=== PATIENT | male | born 1950 | race Caucasian/White ===

== ENCOUNTER 2016-06-17 14:51 | Emergency (ER) | payer OTHER ==
[~2016-06-17] VITALS: Ht 182.9 cm; Wt 149.7 kg
[~2016-06-17 14:51] MED LIST: CIPRO 500MG TA500 MG PO; ECOTRIN81 MG PO; INDOMETHACIN50 MG PO; MEDROL DOSEPAK1 PAC PO; PERCOCET 325 MG1 TA2 PO
--- NOTE | 2016-06-17 15:23 | ED AMS/SEIZURE/WEAK/DIZZY ---
History of Present Illness General Chief Complaint: General Adult Stated Complaint: BIBA, GENERAL WEAKNESS Source: patient, EMS Exam Limitations: no limitations Vital Signs & Intake/Output Vital Signs & Intake/Output Vital Signs Date Time Temp Pulse Resp B/P B/P Pulse O2 O2 Flow FiO2 Mean Ox Delivery Rate 06/17 1837 98.1 66 18 130/72 98 Room Air 06/17 1635 95 06/17 1628 97.1 64 18 128/84 98 Room Air 06/17 1500 97 Room Air 06/17 1459 96.5 66 18 141/67 97 Room Air Allergies Coded Allergies: NO KNOWN ALLERGIES (11/24/14) Reconcile Medications Adalimumab (Humira Pen) 40 MG/0.8 ML PEN.IJ.KIT 1 SYR SC Q2W SKIN (Reported) Aspirin (Ecotrin) 81 MG ECT 1 TAB PO DAILY BLOOD THINNER (Reported) Bupropion HCl (Forfivo XL) 450 MG TAB.ER.24H 1 TAB PO DAILY MENTAL HEALTH ( Reported) Metoprolol Succ XL (Toprol XL) (Unknown Strength) TAB (Unknown Dose) PO DAILY HEART (Reported) Simvastatin (Simvastatin*) (Unknown Strength) TABLET (Unknown Dose) PO QPM CHOLESTEROL (Reported) Trazodone HCl (Unknown Strength) TABLET (Unknown Dose) PO QPM SLEEP (Reported ) Triage Note: 65 Y/O MALE LEANNA FROM HOME FOR EVAL OF GENERAL WEAKNESS X 1 WEEK. PT ARRIVES ALERT AND ORIENTED X 4, SPEAKING CLEARLY WITH NO SLURRING OR DEFICITS NOTED. PT STATES HE FEELS "EXHAUSTED .. EVEN TO GET UP FROM A CHAIR, I AM JUST WIPED OUT". PT STATES HE FEELS HE IS SLURRING HIS WORDS AT TIMES. SPEECH CLEAR AT THIS TIME. REPORTS INTERMITTENT BODY ACHES. DENIES N/V/D. DENIES SOB. DENIES C/P. NO FACIAL DROOP NOTED. NO ARM DRIFT NOTED. EQUAL HAND GRASPS. PT ALSO STATES HE FELL MONDAY BECAUSE A CHAIR BROKE. STRUCK BACK OF HEAD, DENIES LOC EKG IN PROGRESS AWAITING EVAL Triage Nurses Notes Reviewed? yes Onset: Gradual Duration: day(s): (5) Timing: recent history Injury Environment: home Severity: mild, moderate No Modifying Factors: none HPI: 65 year old male feeling weak for the last 5 days, worse x 3 days. He states that his whole body hurts. He has trouble walking because he feels wobbly and uses a cane. He also c/o having a hard time getting out of the chair. The patient reports a fall last week from a chair that broke. He bumped the back of his head on a railing but never had a bump. No chest pain. Occasional cough and dyspnea. Past History Travel History Traveled to [place] past 21 day No Medical History Any Pertinent Medical History? see below for history Neurological: NONE EENT: NONE Cardiovascular: AFIB, hypertension Respiratory: COPD Gastrointestinal: GERD Hepatic: NONE Renal: NONE Musculoskeletal: gout, osteoarthritis Psychiatric: anxiety, depression Endocrine: diabetes Blood Disorders: PSORIASIS Surgical History Surgical History: non-contributory Psychosocial History What is your primary language Divehi Tobacco Use: Current Not Daily Family History Hx Contributory? No Review of Systems Review of Systems Constitutional: Reports: weakness. Denies: chills, fever. EENTM: Reports: no symptoms. Respiratory: Denies: cough, short of breath. Cardiovascular: Denies: chest pain, palpitations. GI: Denies: abdominal pain. Genitourinary: Reports: no symptoms. Musculoskeletal: Reports: muscle pain, muscle stiffness. Skin: Reports: no symptoms. Neurological/Psychological: Reports: no symptoms. Hematologic/Endocrine: Denies: bruising, bleeding, polyuria, polydipsia. Immunologic/Allergic: Denies: splenectomy. All Other Systems: Reviewed and Negative Physical Exam Physical Exam General Appearance: well developed/nourished, alert, awake Head: atraumatic, normal appearance Eyes: Bilateral: normal appearance, PERRL, EOMI. Ears, Nose, Throat: normal pharynx, hearing grossly normal Neck: normal inspection, supple, full range of motion Respiratory: chest non-tender, decreased breath sounds, wheezing Cardiovascular: regular rate/rhythm Peripheral Pulses: 2+ radial (R), 2+ radial (L) Gastrointestinal: soft, non-tender Extremities: normal range of motion Neurologic/Psych: no motor/sensory deficits, awake, alert, oriented x 3 Skin: intact, normal color, warm/dry Core Measures ACS in differential dx? No CVA/TIA Diagnosis: No Severe Sepsis Present: No Septic Shock Present: No Progress Differential Diagnosis: anemia, CVA/stroke, dehydration, bronchitis, pneumonia Plan of Care: Orders Procedure Date/time Status RT ED ORDERS 06/17 1612 Active Add-on Test (ER Only) 06/17 1607 Active URINALYSIS 06/17 1543 Active TROPONIN LEVEL 06/17 154 Complete LYME TITRE 06/17 1543 Active COMPREHENSIVE METABOLIC PANEL 06/17 1543 Complete CREATINE PHOSPHOKINASE 06/17 1543 Complete CBC WITHOUT DIFFERENTIAL 06/17 154 Complete EKG 06/17 1458 Active Laboratory Tests 06/17/16 1623: Anion Gap 10, Estimated GFR > 60, BUN/Creatinine Ratio 27.1 H, Glucose 154 H, Calcium 8.5, Total Bilirubin 0.5, AST 54, ALT 76 H, Alkaline Phosphatase 119, Creatine Kinase 34 L, Troponin I 0.02, Total Protein 6.2 L, Albumin 3.2 L, Globulin 3.0, Albumin/Globulin Ratio 1.1, CBC w Diff NO MAN DIFF REQ, RBC 5.03, MCV 81.3, MCH 26.0 L, RDW 16.0 H, MPV 9.3, Gran % 62.4, Lymphocytes % 27.4, Monocytes % 7.6, Eosinophils % 2.3, Basophils % 0.3, Absolute Granulocytes 3.5, Absolute Lymphocytes 1.5, Absolute Monocytes 0.4, Absolute Eosinophils 0.1, Absolute Basophils 0, PUBS MCHC 32.0 L duoneb, iv solumedrol, iv fluids ordered. labs, cxr, ct scan ordered. Patient improved after fluids. Ambulatory without distress. Patient is calling for a ride home. (HEATH PORRAS,SHERIE) Diagnostic Imaging: Viewed by Me: Radiology Read, CT Scan. Discussed w/RAD: Radiology Read, CT Scan. Initial ED EKG: RBBB Comments: PATIENT: SAHRA LUX PRESENT AGE: 65 PATIENT ACCOUNT NO: [id number] : 52 LOCATION: [facility] ORDERING PHYSICIAN: SHERIE JOE MD SERVICE DATE: 06/17/16 EXAM TYPE: CAT - CT HEAD WO IV CONTRAST EXAMINATION: CT HEAD WITHOUT CONTRAST CLINICAL INFORMATION: Fall and head trauma last week. Now with progressive weakness. Evaluate for subdural hematoma. COMPARISON: None. TECHNIQUE: Contiguous axial imaging was performed from the skull base to vertex without intravenous administration of contrast. DLP: 697 mGy-cm FINDINGS: No acute intracranial abnormality. No acute intracranial hemorrhage, mass or mass effect or abnormal extra-axial fluid collections. The density within the dural venous sinuses is within normal limits. The ventricles are normal in size, without hydrocephalus. There are no focal areas of hypoattenuation within a vascular distribution to suggest acute transcortical ischemia. The basilar cisterns are patent. No acute calvarial abnormality is identified. Soft tissues appear unremarkable. The imaged paranasal sinuses and mastoid air cells are well aerated. IMPRESSION: No acute intracranial pathology. DICTATED BY: GREGOR MCCORD MD DATE/TIME DICTATED:06/17/161748 INVESTIGATION LIEUTENANT:BOBBI DATE/TIME TRANSCRIBED:06/17/161748 CONFIDENTIAL, DO NOT COPY WITHOUT APPROPRIATE AUTHORIZATION. <Electronically signed in Other Vendor System> SIGNED BY: GREGOR MCCORD MD 06/17/161756 PATIENT: SAHRA LUX PRESENT AGE: 65 PATIENT ACCOUNT NO: [id number] : 52 LOCATION: [facility]) ORDERING PHYSICIAN: SHERIE JOE MD SERVICE DATE: 06/17/16 EXAM TYPE: RAD - XRY-CHEST XRAY, PA AND LATERAL EXAMINATION: XR CHEST CLINICAL INFORMATION: Cough and weakness. COMPARISON: None. TECHNIQUE: PA and lateral views of the chest were obtained. FINDINGS: The lungs are well-expanded and clear without focal airspace consolidation. No pleural effusions or pneumothoraces are identified. Cardiomediastinal contours are within normal limits. Soft tissues are unremarkable. No acute osseous abnormality is identified. IMPRESSION: No acute pulmonary process. DICTATED BY: GREGOR MCCORD MD DATE/TIME DICTATED:06/17/161608 INVESTIGATION LIEUTENANT:BOBBI DATE/TIME TRANSCRIBED:06/17/161608 CONFIDENTIAL, DO NOT COPY WITHOUT APPROPRIATE AUTHORIZATION. <Electronically signed in Other Vendor System> SIGNED BY: GREGOR MCCORD MD 06/17/16 1618 Departure Departure Time of Disposition: 1855 Disposition: HOME OR SELF CARE Condition: Stable Clinical Impression Primary Impression: Weakness Secondary Impressions: Bronchitis, Medication side effect Referrals: BRYN UREÑA MD (PCP/Family) Additional Instructions: Stop your trazadone as you stated. Follow up with your doctor at the [facility]. Return if worse. Departure Forms: Customer Survey General Discharge Information
[2016-06-17] MEDS ORDERED: FORFIVO XL450 MG PO (15:28)
[2016-06-17] MEDS ORDERED: TRAZODONE HCL50 M1 PO (15:29)
[2016-06-17] MEDS ORDERED: TOPROL XL25 M1 PO (15:30)
[2016-06-17] MEDS ORDERED: SIMVASTATIN10 M1 PO (15:30)
[2016-06-17] MEDS ORDERED: HUMIRA PEN40 MG/0.8 SC (15:31)
--- NOTE | 2016-06-17 16:18 | RADIOLOGY REPORT ---
EXAMINATION: XR CHEST CLINICAL INFORMATION: Cough and weakness. COMPARISON: None. TECHNIQUE: PA and lateral views of the chest were obtained. FINDINGS: The lungs are well-expanded and clear without focal airspace consolidation. No pleural effusions or pneumothoraces are identified. Cardiomediastinal contours are within normal limits. Soft tissues are unremarkable. No acute osseous abnormality is identified. IMPRESSION: No acute pulmonary process.
[2016-06-17 16:31] LABS: ABSOLUTE BASOPHIL COUNT 0 /CUMM (0.0-0.2); ABSOLUTE EOSINOPHIL COUNT 0.1 /CUMM (0.0-0.7); ABSOLUTE GRANULOCYTE CT 3.5 /CUMM (1.4-6.5); ABSOLUTE LYMPH COUNT 1.5 /CUMM (1.2-3.4); ABSOLUTE MONOCYTE COUNT 0.4 /CUMM (0.10-0.60); BASOPHIL % 0.3 % (0.0-2.0); EOSINOPHIL % 2.3 % (0-5); GRANULOCYTE % 62.4 % (42.2-75.2); HEMATOCRIT 40.9 % (42-52); MEAN CORPUSCULAR VOLUME 81.3 FL (80.0-94.0); MEAN PLATELET VOLUME 9.3 FL (7.4-10.4); PLATELET COUNT 81 /CUMM (130-400); RED BLOOD CELL CT 5.03 /CUMM (4.70-6.10); WHITE BLOOD CELL COUNT 5.6 /CUMM (4.8-10.8)
--- NOTE | 2016-06-17 17:57 | CT SCAN REPORT ---
EXAMINATION: CT HEAD WITHOUT CONTRAST CLINICAL INFORMATION: Fall and head trauma last week. Now with progressive weakness. Evaluate for subdural hematoma. COMPARISON: None. TECHNIQUE: Contiguous axial imaging was performed from the skull base to vertex without intravenous administration of contrast. DLP: 697 mGy-cm FINDINGS: No acute intracranial abnormality. No acute intracranial hemorrhage, mass or mass effect or abnormal extra-axial fluid collections. The density within the dural venous sinuses is within normal limits. The ventricles are normal in size, without hydrocephalus. There are no focal areas of hypoattenuation within a vascular distribution to suggest acute transcortical ischemia. The basilar cisterns are patent. No acute calvarial abnormality is identified. Soft tissues appear unremarkable. The imaged paranasal sinuses and mastoid air cells are well aerated. IMPRESSION: No acute intracranial pathology.
[2016-06-17 18:37] VITALS: BP 130/72
== END 2016-06-17 18:59 ==
LOC: ERH 14:51
PROVIDERS: Emergency Medicine
DX: T50.905A Adverse effect of unspecified drugs, medicaments and biological substances, initial encounter (principal); J40 Bronchitis, not specified as acute or chronic; R53.1 Weakness
CPT/HCPCS: 1263; 86618; 93005; 93010; 96361; 96374; J2930

== ENCOUNTER 2017-09-26 08:23 | Emergency (ER) | payer OTHER ==
[~2017-09-26] VITALS: Ht 182.9 cm; Wt 158.8 kg
[~2017-09-26 08:23] MED LIST changes: +ASPIRIN81 M4 PO; +ATORVASTATIN CA40 M1 PO; +CLONAZEPAM1 M2 PO; -ECOTRIN81 MG PO; +ELIQUIS5 M1 PO; +FORFIVO XL450 MG PO; +GLIPIZIDE5 M2 PO; +HUMIRA PEN40 MG/0.8 SC; +METFORMIN HCL1000 M1 PO; +METOPROLOL TART50 M1 PO; +OMEPRAZOLE20 M3 PO; +SIMVASTATIN10 M1 PO; +TOPROL XL25 M1 PO; +TRAMADOL HCL E100 M1 PO; +TRAZODONE HCL50 M1 PO
[2017-09-26 08:26] VITALS: BP 132/83
--- NOTE | 2017-09-26 08:30 | ED NECK/BACK PAIN COMPLAINT ---
History of Present Illness General Chief Complaint: Low Back Pain/Injury Stated Complaint: LBP Source: patient, old records, EMS Exam Limitations: no limitations Vital Signs & Intake/Output Vital Signs & Intake/Output Vital Signs Date Time Temp Pulse Resp B/P B/P Pulse O2 O2 Flow FiO2 Mean Ox Delivery Rate 09/26 0826 97.5 80 20 132/83 96 Room Air Allergies Coded Allergies: trazodone (UNKNOWN 09/26/17) Reconcile Medications Adalimumab (Humira Pen) 40 MG/0.8 ML PEN.IJ.KIT 1 SYR SC Q2W SKIN (Reported) Apixaban (Eliquis) 5 MG TABLET 1 TAB PO BID atrial fibrillation (Reported) Aspirin (Aspirin*) 81 MG TAB.CHEW 1 TAB PO DAILY HEART (Reported) Atorvastatin Calcium 40 MG TABLET 1 TAB PO DAILY heart (Reported) Bupropion HCl (Forfivo XL) 450 MG TAB.ER.24H 1 TAB PO DAILY MENTAL HEALTH ( Reported) Clonazepam 1 MG TABLET 1 TAB PO BIDP PRN ANXIETY (Reported) Glipizide 5 MG TABLET 3 TAB PO BID DIABETES (Reported) Metformin HCl 1,000 MG TABLET 1 TAB PO BID DIABETES (Reported) Metoprolol Tartrate 50 MG TABLET 1 TAB PO BID BP, AFIB (Reported) Omeprazole 20 MG TABLET.DR 1 TAB PO DAILY GERD (Reported) Tramadol HCl (Tramadol HCl ER) 100 MG TBMP.24HR 1 TAB PO DAILY PRN SEVERE PAIN (Reported) Triage Note: PT BIBA TO TRIAGE FOR C/O LOW BACK PAIN X 4 DAYS. WAS SEEN AT WALK IN AND GIVEN MUSCLE RELAXERS AND STEROIDS WITH NO RELIEF. DENIES ANY OBVIOUS INJURY. DENIES LOSS OF B/B. Triage Nurses Notes Reviewed? yes HPI: Patient presents with left lower back pain that has been worsening over the past 4 days. Patient states he occasionally gets back pain. Last day or 2 and then goes away. Patient states that the pain is aching and throbbing in nature. There is no radiation. The pain increased with movement. There is no weakness or numbness. There is no incontinence of bowel or bladder. He states the pain is 10 out of 10. Patient went to a walk in center and they put him on muscle relaxers as well as prednisone but that is not helping the pain at all. Past History Travel History Traveled to [place] past 21 day No Medical History Any Pertinent Medical History? see below for history Neurological: NONE EENT: NONE Cardiovascular: AFIB, hypertension Respiratory: COPD Gastrointestinal: GERD Hepatic: NONE Renal: NONE Musculoskeletal: gout, osteoarthritis Psychiatric: anxiety, depression Endocrine: diabetes Blood Disorders: PSORIASIS Cancer(s): liver cancer [employer] PANELS/Reproductive: genital herpes History of MRSA: Yes History of VRE: No History of CDIFF: No Surgical History Surgical History: PENILE IMPLANTS HERNIA REPAIRS TONSILECTOMY HAMMER TOE REPAIR Psychosocial History Who do you live with Patient/Self Services at Home None What is your primary language Mohawk Tobacco Use: Quit >30 days ago ETOH Use: occasional use Illicit Drug Use: denies illicit drug use Family History Family History, If Any: SISTER FH: heart attack, Onset: 50-60. FATHER, . FH: heart attack, Onset: 60+. Hx Contributory? No Review of Systems Review of Systems Constitutional: Reports: no symptoms. Ears, Nose, Throat, Mouth: Reports: no symptoms. Respiratory: Reports: no symptoms. Cardiovascular: Reports: no symptoms. Musculoskeletal: Reports: see HPI, back pain. Neurological/Psychological: Reports: no symptoms. Physical Exam Physical Exam General Appearance: well developed/nourished, alert, awake, moderate distress Head: atraumatic, normal appearance Eyes: Bilateral: PERRL, EOMI. Ears, Nose, Throat, Mouth: hearing grossly normal, moist mucous membrane Neck: normal inspection, supple, full range of motion, no midline tenderness Respiratory: normal breath sounds, chest non-tender, no respiratory distress, lungs clear Cardiovascular: normal peripheral pulses, irregularly irregular Extremities: non-tender Straight Leg Raising: Right: Negative. Left: Negative. Neurologic/Psych: no motor/sensory deficits, awake, alert, oriented x 3, normal mood/affect Core Measures CVA/TIA Diagnosis: No Progress Differential Diagnosis: herniated disc, myofascial strain, sciatica, T/L spine injury Plan of Care: Orders Procedure Date/time Status XRY-LUMBOSACRAL SPINE AP & LAT 09/26 829 Active Current Medications Sig/Marge Start time Last Medication Dose Stop Time Status Admin Oxycodone/ 1 TAB ONCE ONE 09/26 829 UNVr 09/26 Acetaminophen 09/26 0831 0833 (Percocet) Diagnostic Imaging: Viewed by Me: Radiology Read. Discussed w/RAD: Radiology Read. Radiology Impression: PATIENT: SAHRA LUX PRESENT AGE: 67 PATIENT ACCOUNT NO: [id number] : 52 LOCATION: [facility] ORDERING PHYSICIAN: Brian Stevens MD SERVICE DATE: 09/26/17 EXAM TYPE: RAD - XRY-LUMBOSACRAL SPINE AP & LAT EXAMINATION: XR LUMBOSACRAL SPINE CLINICAL INFORMATION: Pain. Presumptive diagnosis of fracture. COMPARISON: None TECHNIQUE : 3 views of the lumbosacral spine were obtained. FINDINGS: Mild convex left lumbar scoliosis is seen. No acute fracture or dislocation is noted. There is bulky marginal spur formation seen in the lower thoracic and throughout the lumbar spine. Disc space height is relatively preserved at all levels. There is moderate facet arthropathy throughout the lumbar spine, most severe at the lumbosacral junction. Mild degenerative changes are seen at the hip joints, which are partially included. Sacroiliac joints are unremarkable. Pubic symphysis is intact. Large amount of fecal material is seen in the colon. There is a rounded right upper quadrant calcified structure seen, possibly a calcified gallstone. IMPRESSION: 1. Bulky marginal spur formation in the thoracolumbar spine and moderate facet arthropathy throughout the lumbar spine. 2. No acute fracture or malalignment. 3. Mild degenerative changes in both hip joints. 4. Possible small calcified gallstone in the right upper quadrant. DICTATED BY: Syeda Baldwin MD DATE/TIME DICTATED:09/26/17905 WEB SITE DEVELOPER:BOBBI DATE/TIME TRANSCRIBED:09/26/17905 CONFIDENTIAL, DO NOT COPY WITHOUT APPROPRIATE AUTHORIZATION. <Electronically signed in Other Vendor System> SIGNED BY: Syeda Baldwin MD 09/26/17911 Comments: Pain decreased to a 6 out of 10 after the Percocet. Patient was influenza ambulate in the emergency department and feels comfortable: Home. Departure Departure Disposition: HOME OR SELF CARE Condition: Stable Clinical Impression Primary Impression: Low back pain Referrals: Antoinette Alex MD (PCP/Family) Additional Instructions: Continue the muscle relaxers and steroids as previously prescribed. Take Percocet as needed for the pain. Percocet is very constipating and is very sedating so do not drive after taking. Follow up with her primary care physician. Return if symptoms worsen or for any concerns. Departure Forms: Customer Survey General Discharge Information Prescriptions: Current Visit Scripts Oxycodone HCl/Acetaminophen (Percocet 5-325 MG Tablet) 1-2 TAB PO Q6P PRN PAIN #20 TAB
--- NOTE | 2017-09-26 09:12 | RADIOLOGY REPORT ---
EXAMINATION: XR LUMBOSACRAL SPINE CLINICAL INFORMATION: Pain. Presumptive diagnosis of fracture. COMPARISON: None TECHNIQUE: 3 views of the lumbosacral spine were obtained. FINDINGS: Mild convex left lumbar scoliosis is seen. No acute fracture or dislocation is noted. There is bulky marginal spur formation seen in the lower thoracic and throughout the lumbar spine. Disc space height is relatively preserved at all levels. There is moderate facet arthropathy throughout the lumbar spine, most severe at the lumbosacral junction. Mild degenerative changes are seen at the hip joints, which are partially included. Sacroiliac joints are unremarkable. Pubic symphysis is intact. Large amount of fecal material is seen in the colon. There is a rounded right upper quadrant calcified structure seen, possibly a calcified gallstone. IMPRESSION: 1. Bulky marginal spur formation in the thoracolumbar spine and moderate facet arthropathy throughout the lumbar spine. 2. No acute fracture or malalignment. 3. Mild degenerative changes in both hip joints. 4. Possible small calcified gallstone in the right upper quadrant.
[2017-09-26] MEDS ORDERED: PERCOCET 5-3251 EACH PO (09:54)
== END 2017-09-26 10:04 ==
LOC: ERH 08:23
DX: M54.5 Low back pain (principal)
CPT/HCPCS: 72100

== ENCOUNTER 2017-09-30 23:54 | Inpatient (IN) | payer OTHER ==
[~2017-09-30] VITALS: Ht 182.9 cm; Wt 149.2 kg
[~2017-09-30 23:54] MED LIST changes: +PERCOCET 5-3251 EACH PO
--- NOTE | 2017-10-01 01:14 | ED SKIN/ALLERGY COMPLAINT ---
History of Present Illness General Chief Complaint: Neck/Upper Back Pain/Injury Stated Complaint: BACK PAIN Source: patient, old records Exam Limitations: no limitations Vital Signs & Intake/Output Vital Signs & Intake/Output Vital Signs Date Time Temp Pulse Resp B/P B/P Pulse O2 O2 Flow FiO2 Mean Ox Delivery Rate 10/01 0027 102.6 10/01 0024 102.6 121 20 148/75 98 Room Air Allergies Coded Allergies: trazodone (UNKNOWN 09/26/17) Reconcile Medications Adalimumab (Humira Pen) 40 MG/0.8 ML PEN.IJ.KIT 1 SYR SC Q2W SKIN (Reported) Apixaban (Eliquis) 5 MG TABLET 1 TAB PO BID atrial fibrillation (Reported) Aspirin (Aspirin*) 81 MG TAB.CHEW 1 TAB PO DAILY HEART (Reported) Atorvastatin Calcium 40 MG TABLET 1 TAB PO DAILY heart (Reported) Bupropion HCl (Forfivo XL) 450 MG TAB.ER.24H 1 TAB PO DAILY MENTAL HEALTH ( Reported) Clonazepam 1 MG TABLET 1 TAB PO BIDP PRN ANXIETY (Reported) Glipizide 5 MG TABLET 3 TAB PO BID DIABETES (Reported) Metformin HCl 1,000 MG TABLET 1 TAB PO BID DIABETES (Reported) Metoprolol Tartrate 50 MG TABLET 1 TAB PO BID BP, AFIB (Reported) Omeprazole 20 MG TABLET.DR 1 TAB PO DAILY GERD (Reported) Oxycodone HCl/Acetaminophen (Percocet 5-325 MG Tablet) 5 MG-325 MG TABLET 1-2 TAB PO Q6P PRN PAIN Tramadol HCl (Tramadol HCl ER) 100 MG TBMP.24HR 1 TAB PO DAILY PRN SEVERE PAIN (Reported) Triage Note: PT HERE WITH C/O LOWER BACK PAIN. PT REPORTS BEING SEEN HERE APPROX 6 DAYS AGO AND GIVEN SCRIPTS. PT REPORTS HE WAS DOING OK UNTIL TONIGHT WHEN THE PAIN STARTED "GETTING WORSE AND WORSE". Triage Nurses Notes Reviewed? 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 FATHER, . FH: heart attack, Onset: 60+. Review of Systems Review of Systems Constitutional: Reports: no symptoms. Respiratory: Reports: no symptoms. Cardiovascular: Reports: no symptoms. GI: Reports: no symptoms. Genitourinary: Reports: no symptoms. Musculoskeletal: Reports: no symptoms. Neurological/Psychological: Reports: no symptoms. Hematologic/Endocrine: Reports: no symptoms. Immunologic/Allergic: Reports: no symptoms. All Other Systems: Reviewed and Negative Physical Exam Physical Exam General Appearance: well developed/nourished, mild distress Head: atraumatic Eyes: Bilateral: PERRL, EOMI. Ears, Nose, Throat: normal pharynx, normal ENT inspection, hearing grossly normal Neck: normal inspection, supple Respiratory: normal breath sounds Cardiovascular: regular rate/rhythm Gastrointestinal: soft, non-tender Back: normal inspection Extremities: normal inspection, normal range of motion, no edema Neurologic/Psych: awake, alert, oriented x 3, normal mood/affect Lymphatic: no anterior cervical radha Progress Plan of Care: Current Medications Sig/Marge Start time Last Medication Dose Stop Time Status Admin Acetaminophen 650 MG ONCE ONE 10/010 UNVr 10/01 (Tylenol) 10/01 30 002 Acetaminophen 325 MG ONCE ONE 10/010 UNVr 10/01 (Tylenol) 10/01 30 0027 Departure Departure Condition: Stable Referrals: Antoinette Alex MD (PCP/Family) Departure Forms: Customer Survey General Discharge Information
[2017-10-01 02:06] LABS: ABSOLUTE BASOPHIL COUNT 0.1 /CUMM (0.0-0.2); ABSOLUTE EOSINOPHIL COUNT 0 /CUMM (0.0-0.7); ABSOLUTE GRANULOCYTE CT 11.6 /CUMM (1.4-6.5); ABSOLUTE LYMPH COUNT 1.5 /CUMM (1.2-3.4); ABSOLUTE MONOCYTE COUNT 0.6 /CUMM (0.10-0.60); BASOPHIL % 0.6 % (0.0-2.0); EOSINOPHIL % 0.4 % (0-5); HEMATOCRIT 39.6 % (42-52); MEAN CORPUSCULAR HGB 30.3 PG (27.0-31.0); MEAN CORPUSCULAR HGB CONC 33.8 G/DL (33.0-37.0); MEAN CORPUSCULAR VOLUME 89.6 FL (80.0-94.0); MEAN PLATELET VOLUME 7.9 FL (7.4-10.4); PLATELET COUNT 128 /CUMM (130-400); RBC DISTRIBUTION WIDTH 15.7 % (11.5-14.5); RED BLOOD CELL CT 4.42 /CUMM (4.70-6.10)
[2017-10-01 02:08] LABS: GRANULOCYTE % 84.1 % (42.2-75.2)
[2017-10-01 03:14] LABS: WHITE BLOOD CELL COUNT 13.7 /CUMM (4.8-10.8)
--- NOTE | 2017-10-01 03:51 | CT SCAN REPORT ---
EXAMINATION: CT LUMBAR SPINE WITH CONTRAST CLINICAL INFORMATION: Low back pain and fever. COMPARISON: None TECHNIQUE: 95 cc of Optiray 320 intravenous contrast were administered without incident. DLP: 1666 mGy-cm FINDINGS: The visualized portions of the spleen and liver are unremarkable. Normal adrenal glands are identified bilaterally. The visualized portions of the pancreas are unremarkable. Both kidneys are of normal size and attenuation without hydronephrosis or nephrolithiasis. There is no abdominal or pelvic free fluid. Visualized unopacified loops of small and large bowel are unremarkable. The lumbar vertebra are in normal alignment. Disc heights and vertebral body heights are well-preserved. There is mild anterior osteophyte formation. No abnormal areas of enhancement are noted within the spinal canal. No paraspinal fluid collections are identified. IMPRESSION: No abnormal areas of enhancement are noted within the spinal canal. No paraspinal fluid collections are identified.
--- NOTE | 2017-10-01 04:05 | ED NECK/BACK PAIN COMPLAINT ---
History of Present Illness General Chief Complaint: Neck/Upper Back Pain/Injury Stated Complaint: BACK PAIN Source: patient, old records, EMS Exam Limitations: no limitations Vital Signs & Intake/Output Vital Signs & Intake/Output Vital Signs Date Time Temp Pulse Resp B/P B/P Pulse O2 O2 Flow FiO2 Mean Ox Delivery Rate 10/01 0521 98.7 96 16 100/69 97 Room Air 10/01 0430 98.6 70 18 96/62 98 Room Air 10/01 0027 102.6 10/01 0024 102.6 121 20 148/75 98 Room Air Allergies Coded Allergies: trazodone (UNKNOWN 09/26/17) Reconcile Medications Adalimumab (Humira Pen) 40 MG/0.8 ML PEN.IJ.KIT 1 SYR SC Q2W SKIN (Reported) Apixaban (Eliquis) 5 MG TABLET 1 TAB PO BID atrial fibrillation (Reported) Aspirin (Aspirin*) 81 MG TAB.CHEW 1 TAB PO DAILY HEART (Reported) Atorvastatin Calcium 40 MG TABLET 1 TAB PO DAILY heart (Reported) Bupropion HCl (Forfivo XL) 450 MG TAB.ER.24H 1 TAB PO DAILY MENTAL HEALTH ( Reported) Clonazepam 1 MG TABLET 1 TAB PO BIDP PRN ANXIETY (Reported) Glipizide 5 MG TABLET 3 TAB PO BID DIABETES (Reported) Metformin HCl 1,000 MG TABLET 1 TAB PO BID DIABETES (Reported) Metoprolol Tartrate 50 MG TABLET 1 TAB PO BID BP, AFIB (Reported) Omeprazole 20 MG TABLET.DR 1 TAB PO DAILY GERD (Reported) Oxycodone HCl/Acetaminophen (Percocet 5-325 MG Tablet) 5 MG-325 MG TABLET 1-2 TAB PO Q6P PRN PAIN Tramadol HCl (Tramadol HCl ER) 100 MG TBMP.24HR 1 TAB PO DAILY PRN SEVERE PAIN (Reported) Triage Note: PT HERE WITH C/O LOWER BACK PAIN. PT REPORTS BEING SEEN HERE APPROX 6 DAYS AGO AND GIVEN SCRIPTS. PT REPORTS HE WAS DOING OK UNTIL TONIGHT WHEN THE PAIN STARTED "GETTING WORSE AND WORSE". Triage Nurses Notes Reviewed? yes Onset: several days Duration: day(s):, constant, continues in ED Timing: recent history Quality/Severity: severe, radiation Location: lumbar spine, paraspinous muscles Radiation: none Context: lifting, turning/bending Method of Injury: unknown Loss of Consciousness: no loss of consciousness Modifying Factors: movement, pain medication Associated Symptoms: fever, lower back pain HPI: Several days prior to admission patient complains of left lateral back pain worse with movement turning bending progressive now severe with fever. He denies nausea vomiting diarrhea abdominal pain chest pain cough shortness of breath headache dysuria rash bleeding change in bowel bladder habit change in motor sensory function. Past History Travel History Traveled to [place] past 21 day No Medical History Any Pertinent Medical History? 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 FATHER, . FH: heart attack, Onset: 60+. Hx Contributory? No Review of Systems Review of Systems Constitutional: Reports: see HPI, fever. Eyes: Reports: no symptoms. Ears, Nose, Throat, Mouth: Reports: no symptoms. Respiratory: Reports: no symptoms. Cardiovascular: Reports: no symptoms. Gastrointestinal/Abdominal: Reports: no symptoms. Musculoskeletal: Reports: see HPI, back pain. Skin: Reports: no symptoms. Neurological/Psychological: Reports: no symptoms. All Other Systems: Reviewed and Negative Physical Exam Physical Exam General Appearance: well developed/nourished, alert, awake, anxious, severe distress, obese Head: atraumatic, normal appearance Eyes: Bilateral: normal appearance, PERRL, EOMI, normal inspection. Ears, Nose, Throat, Mouth: hearing grossly normal, moist mucous membrane Neck: normal inspection, supple, full range of motion, normal alignment Respiratory: normal breath sounds, chest non-tender, no respiratory distress, quiet respiration, lungs clear Cardiovascular: regular rate/rhythm, normal peripheral pulses, norml femoral pulses equa Peripheral Pulses: 4+ carotid (R), 4+ carotid (L) Gastrointestinal: normal bowel sounds, soft, non-tender, no organomegaly Back: normal inspection, normal range of motion, muscle spasm, no vertebral tenderness Extremities: non-tender, normal range of motion, pedal edema Sensory: Medial Le: L4R, L4L. Top of Foot: 2: L5R, L5L. Sole of Foot: 2: SIR, MUKUND. Motor: Deficit L4 Right: No Deficit L4 Left: No Deficit L5 Right: No Deficit L5 Left: No Deficit S1 Right: No Deficit S1 Right: No DTR: Deficit L4 Left: No Deficit L4 Right: No Deficit S1 Left: No Deficit S1 Right: No Patellar: 3: L4 Right, L4 Left. Neurologic/Psych: no motor/sensory deficits, awake, alert, oriented x 3, normal mood/affect, telephonic nurse II-XII nml as tested Skin: intact, normal color, warm/dry Core Measures CVA/TIA Diagnosis: No Progress Differential Diagnosis: herniated disc, myofascial strain, sciatica, spinal cord inj, osteomyelitis, epidural abscess Plan of Care: Orders Procedure Date/time Status Regular Diet 10/01 B Active Patient Data 10/01 0704 Active OXYGEN SETUP (GEN) 10/01 0647 Active Saline Lock 10/[address] in observation 10/01 0647 Active Vital Signs 10/01 0647 Active Activity/Ambulation 10/01 0647 Active Code Status 10/01 0647 Active Straight Cath 10/01 0605 Active Intake & Output 10/01 0426 Active C-REACTIVE PROTEIN 10/01 0156 Complete URINALYSIS 10/01 138 Complete HIGH SENSITIVITY CRP 10/01 138 Complete WESTERGREN SED RATE 10/01 013 Complete COMPREHENSIVE METABOLIC PANEL 10/01 138 Complete CBC WITHOUT DIFFERENTIAL 10/01 138 Complete Laboratory Tests 10/01/17 0615: Urinalysis LIGHT H, Urine Color YEL, Urine Clarity CLEAR, Urine pH 7.5, Ur Specific [place] 1.010, Urine Protein NEG, Urine Ketones NEG, Urine Nitrite NEG, Urine Bilirubin NEG, Urine Urobilinogen 2.0 H, Ur Leukocyte Esterase NEG, Ur Microscopic SEDIMENT EXAMINED, Urine RBC 1-3, Urine WBC 1-3 H, Ur Epithelial Cells RARE, Urine Bacteria FEW H, Urine Mucus FEW, Urine Hemoglobin TRACE- INTACT H, Urine Glucose NEG 10/01/17 0156: Anion Gap 6, Estimated GFR > 60, BUN/Creatinine Ratio 25.7 H, Glucose 134 H, Calcium 8.8, Total Bilirubin 0.9, AST 59, ALT 66, Alkaline Phosphatase 141 H, C -Reactive Prot, Quant 3.9 H, C-React Prot High Sens > 15.0 H, Total Protein 6.3, Albumin 2.8 L, Globulin 3.5, Albumin/Globulin Ratio 0.8 L, CBC w Diff NO MAN DIFF REQ, RBC 4.42 L, MCV 89.6, MCH 30.3, MCHC 33.8, RDW 15.7 H, MPV 7.9, Gran % 84.1 H, Lymphocytes % 10.7 L, Monocytes % 4.2, Eosinophils % 0.4, Basophils % 0.6, Absolute Granulocytes 11.6 H, Absolute Lymphocytes 1.5, Absolute Monocytes 0.6, Absolute Eosinophils 0, Absolute Basophils 0.1, ESR Westergren 44 H Diagnostic Imaging: Viewed by Me: Radiology Read, CT Scan. Discussed w/RAD: Radiology Read, CT Scan. Radiology Impression: No abnormal areas of enhancement are noted within the spinal canal. No paraspinal fluid collections are identified. CXR Impression: no acute abnormality, no infiltrates Departure Departure Disposition: STILL A PATIENT Condition: Stable Clinical Impression Primary Impression: Intractable back pain Secondary Impressions: Fever Referrals: Antoinette Alex MD (PCP/Family) Departure Forms: Customer Survey General Discharge Information Observation Note Spoke With: Alessandro Sanchez MD Physician Advisor Notified: RAFAL LYMAN DO Place Patient In: Non-ED OBS Care Area Rationale for Observation: My rational for observation is as follows intractable pain medication adjustment physical therapy continuing care discharge. Ensure safety.
--- NOTE | 2017-10-01 07:01 | RADIOLOGY REPORT ---
EXAMINATION: CHEST 1 VIEW CLINICAL INFORMATION: Chest pain. COMPARISON: December 25, 2016. TECHNIQUE: An AP view of the chest is provided. FINDINGS: The cardiac silhouette is enlarged, though stable. There is mild interstitial prominence throughout both lungs. This could be somewhat accentuated due to overlying soft tissue. There are neither pleural effusions nor pneumothoraces. There are no consolidations. The osseous structures are unremarkable. IMPRESSION: Stable chest radiograph. No consolidations.
--- NOTE | 2017-10-01 08:16 | History & Physical ---
Jake PORRAS,[facility] 10/01/17 0816: General Information and HPI MD Statement: I have seen and personally examined SAHRA LUX and documented this H&P. The patient is a 67 year old M who presented with a patient stated chief complaint of Intractable back pain. Source of Information: patient Exam Limitations: no limitations History of Present Illness: 66-year-old male with a past medical history significant for COPD, hypertension, diabetes on metformin, afib on Eliquis, psoriasis on Humira, GERD, depression/ anxiety, last admision to [place] on for shortness of breath and chest pain (2 day admission) presents with complain of 9 day hx of intractable back pain. Pt initially went to an urgent care 9 days ago during the onset of his back pain, 4 days later he came to [place] ED (09/26/17) due to non resolution of his back pain, was sent home the same day with muscle relaxant. He now comes back today with persistent back pain. Denies fever/chills, head/neck rigidity, altered mental status, abdominal pain,diarrhea ot dysuria. He denies any recent back trauma, but he reports about 19 days ago, he had a mechanical fall that involved hitting his head on the wall but not his back. He was treated at [place] for concussion and sent home. Allergies/Medications Allergies: Coded Allergies: trazodone (UNKNOWN 09/26/17) Home Med list Adalimumab (Humira Pen) 40 MG/0.8 ML PEN.IJ.KIT 1 SYR SC Q2W SKIN (Reported) Apixaban (Eliquis) 5 MG TABLET 1 TAB PO BID atrial fibrillation (Reported) Aspirin (Aspirin*) 81 MG TAB.CHEW 1 TAB PO DAILY HEART (Reported) Atorvastatin Calcium 40 MG TABLET 1 TAB PO DAILY heart (Reported) Bupropion HCl (Forfivo XL) 450 MG TAB.ER.24H 1 TAB PO DAILY MENTAL HEALTH ( Reported) Clonazepam 1 MG TABLET 1 TAB PO BIDP PRN ANXIETY (Reported) Glipizide 5 MG TABLET 3 TAB PO BID DIABETES (Reported) Metformin HCl 1,000 MG TABLET 1 TAB PO BID DIABETES (Reported) Metoprolol Tartrate 50 MG TABLET 1 TAB PO BID BP, AFIB (Reported) Omeprazole 20 MG TABLET.DR 1 TAB PO DAILY GERD (Reported) Oxycodone HCl/Acetaminophen (Percocet 5-325 MG Tablet) 5 MG-325 MG TABLET 1-2 TAB PO Q6P PRN PAIN Tramadol HCl (Tramadol HCl ER) 100 MG TBMP.24HR 1 TAB PO DAILY PRN SEVERE PAIN (Reported) Past History Travel History Traveled to [place] past 21 day No Medical History Neurological: NONE EENT: NONE Cardiovascular: AFIB, hypertension Respiratory: COPD Gastrointestinal: GERD Hepatic: NONE Renal: NONE Musculoskeletal: gout, osteoarthritis Psychiatric: anxiety, depression Endocrine: diabetes Blood Disorders: PSORIASIS 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 FATHER, . FH: heart attack, Onset: 60+. Psychosocial History Services at Home: None Smoking Status: Never Smoked ETOH Use: occasional use Illicit Drug Use: denies illicit drug use Review of Systems Review of Systems Constitutional: Reports: see HPI. EENTM: Reports: no symptoms. Exam & Diagnostic Data Last 24 Hrs of Vital Signs/I&O Vital Signs Date Time Temp Pulse Resp B/P B/P Pulse O2 O2 Flow FiO2 Mean Ox Delivery Rate 10/01 0828 97.8 68 18 92/56 98 Room Air Room Air 10/01 0521 98.7 96 16 100/69 97 Room Air 10/01 0430 98.6 70 18 96/62 98 Room Air 10/01 0027 102.6 10/01 0024 102.6 121 20 148/75 98 Room Air Intake & Output 10/01 1600 10/01 0800 10/01 0000 Intake Total 2000 Output Total 500 Balance 1500 Intake, IV 2000 Output, Urine 500 Patient 158.757 kg Weight Weight Reported by Patient Measurement Method Physical Exam General Appearance Alert, Oriented X3, Cooperative, Mild Distress Skin discoloration of feet b/l HEENT Atraumatic, PERRLA Neck Supple, No JVD Lymphatic Cervical nl Cardiovascular Regular Rate, Normal S1, Normal S2 Lungs Clear to Auscultation, Normal Air Movement Abdomen Normal Bowel Sounds, Soft, No Tenderness Neurological Normal Gait, Normal Speech, Strength at 5/5 X4 Ext, Normal Tone Extremities No Tenderness/Swelling, lower extremites were cold to touch with diminished pulses. There is some faint discloration suggesting PAD. Vascular Diminished DP and PT Last 24 Hrs of Labs/Kennedy: Laboratory Tests 10/01/17 0615: Urinalysis LIGHT H, Urine Color YEL, Urine Clarity CLEAR, Urine pH 7.5, Ur Specific [place] 1.010, Urine Protein NEG, Urine Ketones NEG, Urine Nitrite NEG, Urine Bilirubin NEG, Urine Urobilinogen 2.0 H, Ur Leukocyte Esterase NEG, Ur Microscopic SEDIMENT EXAMINED, Urine RBC 1-3, Urine WBC 1-3 H, Ur Epithelial Cells RARE, Urine Bacteria FEW H, Urine Mucus FEW, Urine Hemoglobin TRACE- INTACT H, Urine Glucose NEG 10/01/17 0156: Anion Gap 6, Estimated GFR > 60, BUN/Creatinine Ratio 25.7 H, Glucose 134 H, Lactic Acid 1.5, Calcium 8.8, Total Bilirubin 0.9, AST 59, ALT 66, Alkaline Phosphatase 141 H, C-Reactive Prot, Quant 3.9 H, C-React Prot High Sens > 15.0 H, Total Protein 6.3, Albumin 2.8 L, Globulin 3.5, Albumin/Globulin Ratio 0.8 L, CBC w Diff NO MAN DIFF REQ, RBC 4.42 L, MCV 89.6, MCH 30.3, MCHC 33.8, RDW 15.7 H, MPV 7.9, Gran % 84.1 H, Lymphocytes % 10.7 L, Monocytes % 4.2, Eosinophils % 0.4, Basophils % 0.6, Absolute Granulocytes 11.6 H, Absolute Lymphocytes 1.5, Absolute Monocytes 0.6, Absolute Eosinophils 0, Absolute Basophils 0.1, ESR Westergren 44 H Microbiology 10/01 840 BLOOD: Blood Culture - COLB 10/01 840 BLOOD: Blood Culture - COLB Assessment/Plan Assessment: 66-year-old gentleman with a past medical history significant for COPD, hypertension, diabetes, A. fib on Eliquis, psoriasis on Humira, GERD, depression /anxiety, presents with a 9 day history of back pain that has been refractory to muscle relaxant and pain medication. He reports no recent trauma. In the ED he is however found to be febrile with a temp of 102 with an increased white count, his UA, chest x-ray, and CT of the spine are all unremarkable for any acute infectious pathology. He denies any altered mental status, head and neck paiN/ stiffness or altered mental status. Impression * Intractable low back pain * Fevers of unknown origin * Leukocytosis * Mild hyponatremia * Clinical physical examination finding suggestive of PAD (cold lower extremities b/l with diminished pulses and slight discoloration). * History of chronic diseases; COPD, rheumatoid arthritis, A. fib, psoriasis, GERD. Plan Place in observation to general med Adequate pain management We will obtain lactic acid Obtain blood cultures 2 Continue home meds Trend CBCs and BEP tomorrow morning Await arterial doppler results Await Vascular official consult (spoke personally to Dr Ratliff, will have the vascular team come and evaluate, no urgent intervention needed as of now, she is already otimized on aspirin,statin and is on Elliquis). PT evaluation tomorrow morning CODE STATUS; full DVT prophylaxis; addressed by Fei As Ranked By This Provider Problem List: 1. Intractable back pain Core Measures/Misc (10/30) Acute Coronary Syndrome ACS Diagnosis: No Congestive Heart Failure Congestive Heart Failure Diagnosis No Cerebrovascular Accident CVA/TIA Diagnosis: No VTE (View Protocol) VTE Risk Factors Acute Medical Illness No Mechanical VTE Prophylaxis d/t N/A MechProphylax Ordered No VTE Pharm Prophylaxis d/t Other (pt on ELLIQUIS) Sepsis (View protocol) Sepsis Present: No If YES complete Sepsis Event Note If YES complete Sepsis Event Note SanchezLeyda munozpaxton 10/01/17 1548: Core Measures/Misc (10/30) Sepsis (View protocol) If YES complete Sepsis Event Note If YES complete Sepsis Event Note Attending MD Review Statement Attending Statement Attending MD Statement: examined this patient, discuss w/resident/PA/NURSING DIRECTOR, agreed w/resident/PA/NURSING DIRECTOR, reviewed EMR data (avail), discussed with case mgmt Attending Assessment/Plan: 66 Male with pmh of COPD, HTN, DM on metformin, afib on Eliquis, psoriasis on Humira, GERD, depression/anxiety, presented with c/c of intractable back pain for last 9-10 days which he says in the lower back on the left side. Pt initially went to an urgent care 9 days ago during the onset of his back pain, 4 days later he came to [place] ED (09/26/17) due to non resolution of his back pain and had a spinal xray done and was sent home the same day with muscle relaxant. Pt presented back to the ER today due to pain not getting better. pt complains of some chills but denies any fevers but had fever of 102 in the ER. pt underwent CT lumbar spine in the ER which did not show any spinal abscess or discitis. pt also had high wbc and high esr and crp and is being admitted for further management. Back pain intractable- Pt on exam has left cva tenderness rather than mid spinal tenderness. pt says he was recently diagnosed with liver cancer about 2 months ago for which he was getting treatment at [facility] . Will get CT abdomen / pelvis with po contrast. will not do iv contrast as pt got iv contrast for spinal CT. will f/u on results. will hold off on abx. His Lactic acid is normal. will f./u on blood cultures. UA negative. B/L lower extremity cold to touch- doppler arterial done shows biphasic waves. Question discordant findings between duplex waveforms versus visual findings of peripheral arterial disease and plaque. Question some inflow disease in the left lower extremity from more proximal aortoiliac disease. Vascular consulted and spoke with Dr Bustos and with [facility] and they are going to see the pt. will get CTA or MRA of the aorta and lower extermity tomorrow if creatinine stays ok. d/w pt the care plan .
[2017-10-01 09:11] VITALS: BP 114/60
--- NOTE | 2017-10-01 13:24 | ULTRASOUND REPORT ---
EXAMINATION: COLOR-FLOW DUPLEX IMAGING OF THE BILATERAL LOWER EXTREMITY ARTERIAL SYSTEM. VELOCITY MEASUREMENTS TO THE POPLITEAL ARTERIES.. CLINICAL INFORMATION: Chronic bilateral lower extremity pain and discoloration. Findings: Right lower extremity: Right common femoral artery has a peak systolic velocity of 135 cm/s and demonstrates a triphasic waveform. The proximal profunda femoral artery has a peak systolic velocity of 62 cm/s with a triphasic waveform. The proximal superficial femoral artery has peak systolic velocity of 73 cm/s with a triphasic waveform. The mid superficial femoral artery has a peak systolic velocity of 60 cm/s with a triphasic waveform. The distal femoral artery has a peak systolic velocity of 33 cm/s with a questionable biphasic or triphasic waveform. The velocity is somewhat diminished and visually there may be stenosis or occlusion over short segment however there may be prominent collateral vessels causing the waveform in appearance. The right proximal popliteal artery has a peak systolic velocity of 60 cm/s with a triphasic waveform. The right distal popliteal artery has a peak systolic velocity of 54 cm/s with a triphasic waveform. The proximal right posterior tibial artery has a peak systolic velocity of 32 cm/s with a biphasic waveform. The proximal right peroneal artery has a peak systolic velocity of 48 cm/s with a biphasic waveform. The anterior tibial artery at the ankle has a peak systolic velocity of 46 cm/s with a biphasic waveform. The dorsalis pedis artery has a peak systolic velocity of 43 cm/s with a biphasic waveform. Left lower extremity: Left common femoral artery has a peak systolic velocity of 88 cm/s with triphasic waveform. The profunda femoral artery has a peak systolic velocity of 46 cm/s with a biphasic waveform. Left proximal superficial femoral artery has a peak systolic velocity of 84 cm/s with a biphasic waveform. The left mid superficial femoral artery has a peak systolic velocity of 64 cm/s with a triphasic waveform. The distal femoral artery has a peak systolic velocity of 46 cm/s with a biphasic waveform. The proximal popliteal artery has a peak systolic velocity of 69 cm/s with a triphasic waveform. The distal popliteal artery has a peak systolic velocity of 62 cm/s with a triphasic waveform. Distal anterior tibial artery has a peak systolic velocity of 35 cm/s with a biphasic waveform. Dorsalis pedis artery has a peak systolic velocity of 39 cm/s with a biphasic waveform. IMPRESSION: Question discordant findings between duplex waveforms versus visual findings of peripheral arterial disease and plaque. Question some inflow disease in the left lower extremity from more proximal aortoiliac disease. CTA or MRA of the abdominal aorta and lower extremities would be of help in further evaluation.
[2017-10-01 14:28] VITALS: BP 112/70
--- NOTE | 2017-10-01 15:40 | Admission Certification ---
Admission Certification Certification Statement - As attending physician, I certify that at the time of - admission, based on clinical presentation, severity of - symptoms, need for further diagnostic testing and - therapeutic interventions, and risk of adverse outcomes - without in-hospital treatment, in my clinical assessment, - this patient requires an acute hospital stay for a minimum - of two nights or longer. I have also considered psychsocial - factors such as support system, advanced age, financial - issues, cognitive issues, and failed out-patient treatments, - past re-admission history, safety of patient, and lack of - compliance as applicable. Specific rationale supporting this admission is: back pain intractable and left CVA tenderness and b/l cold lower extremities.
--- NOTE | 2017-10-01 18:23 | CT SCAN REPORT ---
CT ABDOMEN AND PELVIS WITH ORAL CONTRAST CLINICAL INFORMATION: Fever, abdominal pain, and flank pain. Recent liver biopsy. COMPARISON: Lumbar spine CT performed earlier the same day. TECHNIQUE: Multidetector CT acquisition of the abdomen and pelvis is obtained following the administration of 900 mL of Redicat barium contrast. FINDINGS: The lung bases are clear. Cirrhotic appearing liver with a nodular contour in nondiagnostic assessment for focal lesions on this noncontrast exam. There is a possible hypodense lesion within the left lobe of the liver on image 21 of series 2 measuring 2.6 cm in size. Recanalization of the umbilical vein. No perihepatic hematoma is identified. Splenomegaly with the spleen measuring up to 18 cm in size. The adrenal glands and the pancreas are unremarkable. Cholelithiasis. Slight stranding surrounding the gallbladder which can be correlated for clinical signs of acute cholecystitis. The kidneys exhibit symmetric nephrograms without evidence of hydronephrosis or nephrolithiasis. No focal renal lesions. Moderate volume of colonic stool. There is trace fluid within the right paracolic gutter near the cecum that is nonspecific. The appendix is normal in size and unremarkable. The large and small bowel are normal in caliber without evidence of mechanical obstruction. No focal inflammatory changes adjacent to the large or the small bowel. The appendix is normal. There is no free air and there is no intra-abdominal free fluid. No mesenteric or retroperitoneal adenopathy. There is aortoiliac atherosclerotic calcification. Penile prosthesis with a reservoir located along the anterior margin of the bladder. There are no acute osseous abnormalities. Thoracolumbar spondylosis. No significant soft tissue abnormality. IMPRESSION: - Cholelithiasis. Slight stranding surrounding the gallbladder which can be correlated for clinical signs of acute cholecystitis. - Hepatic cirrhosis. Nonspecific 2.6 cm hypodense lesion within the left lobe of the liver on image 20 of series 2 that can be correlated with any prior diagnostic liver imaging if available or a liver protocol MRI. - Splenomegaly.
[2017-10-01 22:09] VITALS: BP 140/80
[2017-10-02 06:20] VITALS: BP 126/72
--- NOTE | 2017-10-02 07:52 | PN- Housestaff ---
Isabela Cochran 10/02/17 0752: Subjective Follow-up For: Intractable back pain Leukocytosis Fever of unknown Origin Subjective: Patient was seen and examined at bedside. He says his pain is better as compared to yesterday. He denies fever, chills, nausea, vomiting, chest pain , shortness of breath. He says he is not aware Review of Systems Constitutional: Reports: see HPI. Objective Last 24 Hrs of Vital Signs/I&O Vital Signs Date Time Temp Pulse Resp B/P B/P Pulse O2 O2 Flow FiO2 Mean Ox Delivery Rate 10/02 1403 98.2 64 18 140/80 96 Room Air 10/02 0900 86 126/72 10/02 0620 97.6 86 20 126/72 93 Room Air 10/02 0000 94 Room Air 10/01 2209 98.4 90 20 140/80 94 Room Air 10/01 2122 90 140/80 Intake & Output 10/02 1600 10/02 0800 10/02 0000 Intake Total 550 320 550 Output Total 500 750 100 Balance 50 -430 450 Intake, IV 150 120 Intake, Oral 400 200 550 Number 0 Bowel Movements Output, Urine 500 750 100 Physical Exam General Appearance: Alert, Oriented X3, Cooperative, Moderate Distress Assessment/Plan Assessment: 66-year-old gentleman with a past medical history significant for COPD, hypertension, diabetes, A. fib on Eliquis, psoriasis on Humira, GERD, depression /anxiety, presents with a 9 day history of back pain that has been refractory to muscle relaxant and pain medication. He reports no recent trauma. In the ED he was found to be febrile with a temp of 102 with an increased white count, his UA , chest x-ray, and CT of the spine are all unremarkable for any acute infectious pathology. He denies any altered mental status, head and neck paiN/stiffness or altered mental status. Duplex scan lower extremity IMPRESSION: Question discordant findings between duplex waveforms versus visual findings of peripheral arterial disease and plaque. Question some inflow disease in the left lower extremity from more proximal aortoiliac disease. CTA or MRA of the abdominal aorta and lower extremities would be of help in further evaluation. CT Abdomen IMPRESSION: - Cholelithiasis. Slight stranding surrounding the gallbladder which can be correlated for clinical signs of acute cholecystitis. - Hepatic cirrhosis. Nonspecific 2.6 cm hypodense lesion within the left lobe of the liver on image 20 of series 2 that can be correlated with any prior diagnostic liver imaging if available or a liver protocol MRI. - Splenomegaly. Impression 1. Intractable low back pain -Improving -Adequate pain management -Lumbar CT unremarkable -Cholecystitis on CT -Will order USG for evaluation of the gall bladder -Surgery consult in the am 2.Fevers of unknown origin with leukocytosis -Cholecystitis on CT -Will order USG for evaluation of the gall bladder -Surgery consult in the am -Blood cultures pending -Trend CBC 3.Mild hyponatremia -Fluid restriction -Will continue to follow 4. Clinical physical examination finding suggestive of PAD (cold lower extremities b/l with diminished pulses and slight discoloration). -CTA abdominal aorta in the AM tomorrow -Vascular surgery consult placed. Will follow up on recommendations. 5.History of chronic diseases; COPD, rheumatoid arthritis, A. fib, psoriasis, GERD. Continue home meds CODE STATUS; full DVT prophylaxis; addressed by Fei Problem List: 1. Fever 2. Intractable back pain 3. Low back pain 4. Diabetes 5. HTN (hypertension) 6. Peripheral angiopathy Pain Ratin Pain Location: back Pain Goal: Pain 4 or less Pain Plan: pathway Tomorrow's Labs & Rationales: cbc and bep Greta Barlow 10/02/17 1217: Attending MD Review Statement Attending Statement Attending MD Statement: examined this patient, discuss w/resident/PA/AUTOMATIC EDGER, agreed w/resident/PA/AUTOMATIC EDGER, discussed with family, reviewed EMR data (avail), discussed with nursing, discussed with case mgmt, reviewed images, amended to note Attending Assessment/Plan: 66 Male with pmh of COPD, HTN, DM on metformin, afib on Eliquis, psoriasis on Humira, GERD, depression/anxiety, presented with c/c of intractable back pain for last 9-10 days which he says in the lower back on the left side. Pt underwent CT lumbar spine in the ER which did not show any spinal abscess or discitis. Patient had fever, leukocytosis on presentation. vitals stable. No fever in past 24 hrs, send blood cultures not sent previously. Back pain intractable/?atypical presentation- Negative CT spine but suggestive of cholecystitis. Start iv unasyn. RUQ usg. Monitor LFTS, IVF, Diet as tolerated. GI consult. Peripheral vascular disease - doppler arterial done abnormal findings. Vascular consulted and aware. Follow vascular surgery recs. Creatinine normal. C/w maintenance hydraiton. c/w home meds. RISS and titrate insulin as needed. d/w pt the care plan .
[2017-10-02 14:03] VITALS: BP 140/80
[2017-10-02 16:37] LABS: ABSOLUTE BASOPHIL COUNT 0 /CUMM (0.0-0.2); ABSOLUTE EOSINOPHIL COUNT 0.1 /CUMM (0.0-0.7); ABSOLUTE GRANULOCYTE CT 9.3 /CUMM (1.4-6.5); ABSOLUTE LYMPH COUNT 1.5 /CUMM (1.2-3.4); ABSOLUTE MONOCYTE COUNT 0.8 /CUMM (0.10-0.60); BASOPHIL % 0.2 % (0.0-2.0); EOSINOPHIL % 0.6 % (0-5); GRANULOCYTE % 79.6 % (42.2-75.2); HEMATOCRIT 39.5 % (42-52); MEAN CORPUSCULAR HGB 29.8 PG (27.0-31.0); MEAN CORPUSCULAR HGB CONC 32.9 G/DL (33.0-37.0); MEAN CORPUSCULAR VOLUME 90.6 FL (80.0-94.0); PLATELET COUNT 136 /CUMM (130-400); RBC DISTRIBUTION WIDTH 16.3 % (11.5-14.5); RED BLOOD CELL CT 4.36 /CUMM (4.70-6.10); WHITE BLOOD CELL COUNT 11.7 /CUMM (4.8-10.8)
--- NOTE | 2017-10-02 17:06 | ULTRASOUND REPORT ---
EXAMINATION: US ABDOMEN COMPLETE CLINICAL INFORMATION: Cholelithiasis on CT. Back pain. Lower abdominal pain.. COMPARISON: CT abdomen and pelvis 10/01/2017 TECHNIQUE: Real-time imaging of the abdominal viscera. FINDINGS: PANCREAS: The pancreas was not well seen. ABDOMINAL AORTA: The proximal segment is normal in caliber. INFERIOR VENA CAVA: Visualized portions are normal. LIVER: Cirrhotic appearance of the liver with increased echogenicity and diffusely heterogeneous echotexture with a nodular surface. No focal liver lesion or intrahepatic biliary dilatation. GALLBLADDER: There is a 1.9 cm calculus identified within the gallbladder lumen. The gallbladder wall is not significantly thickened, measuring 0.4 cm at its maximal point. Otherwise, gallbladder wall was thin and nearly imperceptible. The patient was tender to transducer palpation over the gallbladder. COMMON BILE DUCT: Unable to be seen. RIGHT KIDNEY: No hydronephrosis. No renal calculi or focal parenchymal lesions. The kidney measures 13.6 cm in maximum dimension. LEFT KIDNEY: Unable to be seen. SPLEEN: Unable to be seen. FREE FLUID: None. IMPRESSION: Markedly limited evaluation due to body habitus and patient's inability to tolerate pressure during the exam. The patient's abdominal tenderness was not specific to any one quadrant, therefore the tenderness to palpation in the area of the gallbladder is nonspecific. The wall is not particularly thickened and only measures up to 0.4 cm in its maximal dimension. There is a gallstone seen in the proximal body/neck of the gallbladder. This does not appear to drop to a dependent location upon decubitus positioning. Overall, the appearance of the gallbladder on CT and ultrasound is not compelling for acute cholecystitis, however this remains a clinical diagnosis. Recommend clinical correlation and consider HIDA scan to assess for cystic duct patency if the clinical scenario remains unclear.
[2017-10-02 22:21] VITALS: BP 122/80
[2017-10-03 06:56] VITALS: BP 108/70
--- NOTE | 2017-10-03 07:38 | PN- Housestaff ---
See Addendum Isabela Cochran 10/03/17 0738: Subjective Follow-up For: Intractable back paim Subjective: Patient was seen and examined at bedside. He still is in excruciating pain especially when he tries to ambulate. He reports increased frequency and burning on urination along with bertha hematuria with blood clots since last night. He reports seeing a "bright red worm" in his urine which he had the nurse preserve for the doctors to see in the morning. He does endorse some belly pain but fails to localise it to a more specific region. The sample was inadvertently thrown away. He denies fever, chills, nausea, vomiting. Review of Systems Constitutional: Reports: see HPI. Objective Last 24 Hrs of Vital Signs/I&O Vital Signs Date Time Temp Pulse Resp B/P B/P Pulse O2 O2 Flow FiO2 Mean Ox Delivery Rate 10/03 1424 98.6 62 20 112/64 96 Room Air 10/03 0831 105/60 10/03 0800 Room Air 10/03 0656 98.6 70 20 108/70 96 Room Air 10/02 2221 98.2 85 20 122/80 96 Room Air 10/02 2125 85 122/80 Intake & Output 10/03 1600 10/03 0800 10/03 0000 Intake Total 240 1500 Output Total 159 558 2974 Balance -200 -160 -550 Intake, IV 600 Intake, Oral 240 900 Number 0 Bowel Movements Output, Urine 809 566 0770 Physical Exam General Appearance: Alert, Oriented X3, Cooperative, Moderate Distress Skin: No Rashes Neck: Supple Cardiovascular: Regular Rate, Normal S1, Normal S2 Lungs: Clear to Auscultation Abdomen: Normal Bowel Sounds, Soft, Mild diffuse tenderness Assessment/Plan Assessment: 66-year-old gentleman with a past medical history significant for COPD, hypertension, diabetes, A. fib on Eliquis, psoriasis on Humira, GERD, depression /anxiety, presents with a 9 day history of back pain that has been refractory to muscle relaxant and pain medication. He reports no recent trauma. The patient was febrile when he first came in but has been afebrile since yesterday. Duplex scan lower extremity IMPRESSION: Question discordant findings between duplex waveforms versus visual findings of peripheral arterial disease and plaque. Question some inflow disease in the left lower extremity from more proximal aortoiliac disease. CTA or MRA of the abdominal aorta and lower extremities would be of help in further evaluation. CT Abdomen IMPRESSION: - Cholelithiasis. Slight stranding surrounding the gallbladder which can be correlated for clinical signs of acute cholecystitis. - Hepatic cirrhosis. Nonspecific 2.6 cm hypodense lesion within the left lobe of the liver on image 20 of series 2 that can be correlated with any prior diagnostic liver imaging if available or a liver protocol MRI. - Splenomegaly. Abdomiinal Aorta run off MPRESSION: 1. Limited examination secondary to quantum mottle artifact from patient body habitus. 2. Deep arterial system of the left lower extremity is patent with only mild atherosclerotic disease noted within the left common iliac and common femoral arteries. The left peroneal and anterior and posterior tibial arteries are well-opacified to the level of the mid calf. All of these calf arteries are poorly opacified distal to the mid calf suggesting changes due to contrast bolus timing. A distal stenosis cannot be entirely excluded. 3. Moderate atherosclerotic disease within the right common iliac artery results in [id number] stenosis. 4. There is poor opacification of the right calf arteries limiting evaluation. A stenosis/occlusion within the distal right popliteal artery cannot be entirely excluded. This may also be secondary to contrast bolus timing. 5. Cholelithiasis. 6. Cirrhotic appearing liver. Questionable 2 cm hypodensity within the left hepatic lobe. Further evaluation can be obtained with MRI imaging if clinically indicated. PROBLEMS 1. Intractable low back pain -09/22 severely limiting his mobility -Pain worse on movement, and would therefore make muskuloskeletal the most likely cause -Adequate pain management -Lumbar CT unremarkable -Cholecystitis on CT, USG of the abdomen acknowledged cholelithiasis , cholecystitis was not appreciated. However, we would still keep cholecystitis high on our list of diffrentials. -Will trend LFTs -Will consider surgery consult if he does not improve. 2.?Cholecystitis -Cholecystitis on CT, not appreciated on Ultrasound. -Cholelithiasis on ultrasound without an evidence of obstruction -Would consider surgey consult if he does not improve -Blood cultures: Gram positive cocci -Total biilirubin: 1.5, with direct bilirubin: 0.5 -AST/ALT: 50/58. Alkaline phosphatase down to 80 from 141 yesterday -Trend CBC 3. Hematuria -Bertha blood in the urine since last night -Increased frequency and burning micturation also reported -UA: Few bacteria with negative leukocyte esterase and nitrite, with moderate hemoglobin - Urine culture pending -In the view of the above findings, UTI unlikely -Hematuria could be traumatic vs malignancy vs vascular vs coagulopathy -Would consider re-evaluation of Fei 3.Mild hyponatremia -Fluid restriction -Will continue to follow 4. PAD (cold lower extremities b/l with diminished pulses and slight discoloration). -CTA abdominal aorta in the AM tomorrow -Vascular surgery consulted. No urgent/emergent intervention. 5.History of chronic diseases; COPD, rheumatoid arthritis, A. fib, psoriasis, GERD. Continue home meds CODE STATUS; full DVT prophylaxis; addressed by Fei Problem List: 1. Peripheral angiopathy 2. Fever 3. Intractable back pain 4. Diabetes 5. Cholecystitis with cholelithiasis 6. Hematuria 7. Morbid obesity Pain Ratin Pain Location: back Pain Goal: Pain 4 or less Pain Plan: pathway Tomorrow's Labs & Rationales: cbc and bep YenGreta 10/03/17 1134: Attending MD Review Statement Attending Statement Attending MD Statement: examined this patient, discuss w/resident/PA/VETERINARY MICROBIOLOGIST, agreed w/resident/PA/VETERINARY MICROBIOLOGIST, discussed with family, reviewed EMR data (avail), discussed with nursing, discussed with case mgmt, reviewed images, amended to note Attending Assessment/Plan: 66 Male with pmh of COPD, HTN, DM on metformin, afib on Eliquis, psoriasis on Humira, GERD, depression/anxiety, presented with c/c of intractable back pain for last 9-10 days which he says in the lower back on the right side. Pt underwent CT lumbar spine in the ER which did not show any spinal abscess or discitis. Patient had fever, leukocytosis on presentation. Vitals stable. No fever in past 24 hrs, Blood culture positive for gram positive cocci. RUQ USG noted. CTA noted. Follow labs Back pain intractable/?atypical presentation- Negative CT spine but suggestive of cholecystitis. C/w iv unasyn. Monitor LFTS, IVF, Diet as tolerated. Surgery consult. Peripheral vascular disease - doppler arterial done abnormal findings. CTA Aorta run off. Vascular consulted and aware. Follow vascular surgery recs. Creatinine normal. C/w maintenance hydraiton. Cirrhosis: 2cm hypodense lesion. ?etiology bacteremia Gram positive cocci: Obtain TTE and repeat blood cultures urology consult for hematuria. hold eliquis. monitor cbc c/w home meds. RISS and titrate insulin as needed. d/w pt the care plan .
[2017-10-03 10:36] LABS: ABSOLUTE BASOPHIL COUNT 0 /CUMM (0.0-0.2); ABSOLUTE EOSINOPHIL COUNT 0.1 /CUMM (0.0-0.7); ABSOLUTE GRANULOCYTE CT 6.6 /CUMM (1.4-6.5); ABSOLUTE LYMPH COUNT 1.7 /CUMM (1.2-3.4); ABSOLUTE MONOCYTE COUNT 0.6 /CUMM (0.10-0.60); BASOPHIL % 0.1 % (0.0-2.0); EOSINOPHIL % 0.9 % (0-5); GRANULOCYTE % 73.2 % (42.2-75.2); HEMATOCRIT 35.4 % (42-52); MEAN CORPUSCULAR HGB 30.6 PG (27.0-31.0); MEAN CORPUSCULAR HGB CONC 33.6 G/DL (33.0-37.0); MEAN CORPUSCULAR VOLUME 90.9 FL (80.0-94.0); MEAN PLATELET VOLUME 8.1 FL (7.4-10.4); PLATELET COUNT 102 /CUMM (130-400); RBC DISTRIBUTION WIDTH 15.9 % (11.5-14.5)
--- NOTE | 2017-10-03 10:43 | CT SCAN REPORT ---
STUDY: Abdominal, pelvic, and bilateral lower extremity CT angiogram CLINICAL INDICATION: Aorto iliac compromise. Discordant lower extremity arterial Doppler. TECHNIQUE: Following the administration of a bolus infusion of 125cc of Optiray 350, images of the abdomen, pelvis and bilateral lower extremities were obtained with multidetector helical acquisition. These contrast-enhanced images were processed on an independent workstation into extensive multiplanar and 3D renditions for interpretation. Examination limited secondary to quantum model artifact from patient body habitus. COMPARISON: CT abdomen pelvis and lower extremity arterial ultrasound 10/01/2017 DLP: 1525 mGy-cm FINDINGS: VASCULATURE- Visualized portions of the distal descending thoracic aorta are normal in caliber. The abdominal aorta is normal in caliber with only minimal atherosclerotic disease. Celiac artery and superior mesenteric artery appear widely patent. Inferior mesenteric artery is patent. Single left and duplicated right renal arteries are widely patent. Left common iliac artery is widely patent and demonstrates only mild atherosclerotic disease. Left internal iliac artery is patent. Left external iliac artery is widely patent. Mild atherosclerotic disease of the left common femoral artery results in mild stenosis. Left profundus femoris artery is patent. Left superficial femoral artery is widely patent. Left popliteal artery is widely patent. The left peroneal and anterior and posterior tibial arteries are well-opacified to the level of the mid calf. All of these calf arteries are poorly opacified distal to the mid calf suggesting changes due to contrast bolus timing. A distal stenosis cannot be entirely excluded. Moderate atherosclerotic disease within the right common iliac artery results in [id number] stenosis. The right internal iliac artery is patent. Right external iliac artery is widely patent. Mild atherosclerotic disease of the right common femoral artery results in mild stenosis. Right profundus femoris artery is patent. Right superficial femoral artery is widely patent with a few areas of minimal plaque resulting in mild stenosis. The right popliteal artery is patent. There is poor opacification of the right calf arteries limiting evaluation. A stenosis/occlusion within the distal right popliteal artery cannot be entirely excluded. NON-VASCULAR- Visualized lung bases are adequately aerated. Cirrhotic appearing liver. Approximate 2 cm hypodensity within the left hepatic lobe is again poorly visualized and remains nonspecific. A gallstone is present within the gallbladder. The pancreas is mildly atrophic. Small medial splenule. Enlarged spleen. The adrenal glands are unremarkable. Symmetrically enhancing kidneys without hydronephrosis. Nonobstructing bowel gas pattern. Mild stool burden throughout the colon. The bladder is partially distended and grossly unremarkable. Penile prosthesis. Diffuse degenerative changes of the spine, hips and knees. IMPRESSION: 1. Limited examination secondary to quantum mottle artifact from patient body habitus. 2. Deep arterial system of the left lower extremity is patent with only mild atherosclerotic disease noted within the left common iliac and common femoral arteries. The left peroneal and anterior and posterior tibial arteries are well-opacified to the level of the mid calf. All of these calf arteries are poorly opacified distal to the mid calf suggesting changes due to contrast bolus timing. A distal stenosis cannot be entirely excluded. 3. Moderate atherosclerotic disease within the right common iliac artery results in [id number] stenosis. 4. There is poor opacification of the right calf arteries limiting evaluation. A stenosis/occlusion within the distal right popliteal artery cannot be entirely excluded. This may also be secondary to contrast bolus timing. 5. Cholelithiasis. 6. Cirrhotic appearing liver. Questionable 2 cm hypodensity within the left hepatic lobe. Further evaluation can be obtained with MRI imaging if clinically indicated.
[2017-10-03 14:24] VITALS: BP 112/64
--- NOTE | 2017-10-03 14:32 | Cons- Vascular Surgery ---
General Information and HPI Consulting Request Date of Consult: 10/03/17 Requested By: Greta Barlow MD Reason for Consult: Cool lower extremity Source of Information: patient, old records, ct angio with runoff Exam Limitations: no limitations History of Present Illness: Mr. Thompson 67-year-old male who was admitted for sudden onset of low back pain without trauma. He states that the pain woke him up and he had never experienced this pain before. The pain did radiate into his left buttock but did not go down to his left extremity. A vascular workup was obtained with a CT angiogram of abdomen and pelvis with runoff which demonstrated some arterial occlusions but flow to lower extremity. Vascular consult was requested to determine if this was a source of his back pain. Mr. Thompson states that he has never experienced this back pain when she gets back to me and denies any major issues associated with his lower extremities. Allergies/Medications Allergies: Coded Allergies: trazodone (UNKNOWN 09/26/17) Home Med List: Adalimumab (Humira Pen) 40 MG/0.8 ML PEN.IJ.KIT 1 SYR SC Q2W SKIN (Reported) Apixaban (Eliquis) 5 MG TABLET 1 TAB PO BID atrial fibrillation (Reported) Aspirin (Aspirin*) 81 MG TAB.CHEW 1 TAB PO DAILY HEART (Reported) Atorvastatin Calcium 40 MG TABLET 1 TAB PO DAILY heart (Reported) Bupropion HCl (Forfivo XL) 450 MG TAB.ER.24H 1 TAB PO DAILY MENTAL HEALTH ( Reported) Clonazepam 1 MG TABLET 1 TAB PO BIDP PRN ANXIETY (Reported) Glipizide 5 MG TABLET 3 TAB PO BID DIABETES (Reported) Metformin HCl 1,000 MG TABLET 1 TAB PO BID DIABETES (Reported) Metoprolol Tartrate 50 MG TABLET 1 TAB PO BID BP, AFIB (Reported) Omeprazole 20 MG TABLET.DR 1 TAB PO DAILY GERD (Reported) Oxycodone HCl/Acetaminophen (Percocet 5-325 MG Tablet) 5 MG-325 MG TABLET 1-2 TAB PO Q6P PRN PAIN Tramadol HCl (Tramadol HCl ER) 100 MG TBMP.24HR 1 TAB PO DAILY PRN SEVERE PAIN (Reported) Past History Medical History Blood Transfusion Hx: Yes Neurological: NONE EENT: NONE Cardiovascular: AFIB, hypertension Respiratory: COPD Gastrointestinal: GERD Hepatic: NONE Renal: NONE Musculoskeletal: gout, osteoarthritis Psychiatric: anxiety, depression Endocrine: diabetes Blood Disorders: PSORIASIS Cancer(s): liver cancer 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 FATHER, . FH: heart attack, Onset: 60+. Psychosocial History Where Do You Live? Home Services at Home: None Smoking Status: Former Smoker ETOH Use: occasional use Illicit Drug Use: denies illicit drug use Exam & Diagnostic Data Vital Signs and I&O Vital Signs Date Time Temp Pulse Resp B/P B/P Pulse O2 O2 Flow FiO2 Mean Ox Delivery Rate 10/03 1424 98.6 62 20 112/64 96 Room Air 10/03 0831 105/60 10/03 0800 Room Air 10/03 0656 98.6 70 20 108/70 96 Room Air 10/02 2221 98.2 85 20 122/80 96 Room Air 10/02 2125 85 122/80 Intake & Output 10/03 1600 10/03 0800 10/03 0000 10/02 1600 10/02 0800 10/02 0000 Intake Total 0283 046 2758 550 320 550 Output Total 184 184 2784 500 750 100 Balance 650 -160 -550 50 -430 450 Intake, IV 600 600 150 120 Intake, Oral 850 240 900 400 200 550 Number 1 0 0 Bowel Movements Output, Urine 045 968 9124 500 750 100 Physical Exam General Appearance: alert, awake, anxious, obese Head: normal appearance Eyes: Bilateral: PERRL. Cardiovascular: regular rate/rhythm Gastrointestinal: normal bowel sounds, non-tender Back: normal inspection, no vertebral tenderness Extremities: pedal edema, slow capillary refill, swelling, severe pvd Last 24 Hours of Labs: Laboratory Tests 10/03 10/03 1015 0849 Chemistry Sodium (137 - 145 mmol/L) 131 L Potassium (3.5 - 5.1 mmol/L) 4.1 Chloride (98 - 107 mmol/L) 99 Carbon Dioxide (22 - 30 mmol/L) 27 Anion Gap (5 - 16) 6 BUN (9 - 20 mg/dL) 17 Creatinine (0.7 - 1.2 mg/dL) 0.7 Estimated GFR (>60 ml/min) > 60 BUN/Creatinine Ratio (7 - 25 %) 24.3 Total Bilirubin (0.2 - 1.3 mg/dL) 1.5 H Direct Bilirubin (< 0.4 mg/dL) 0.5 H AST (17 - 59 U/L) 50 ALT (21 - 72 U/L) 58 Alkaline Phosphatase (< 127 U/L) 81 Total Protein (6.3 - 8.2 g/dL) 5.7 L Albumin (3.5 - 5.0 g/dL) 2.5 L Hematology CBC w Diff NO MAN DIFF REQ WBC (4.8 - 10.8 /CUMM) 9.0 RBC (4.70 - 6.10 /CUMM) 3.90 L Hgb (14.0 - 18.0 G/DL) 11.9 L Hct (42 - 52 %) 35.4 L MCV (80.0 - 94.0 FL) 90.9 MCH (27.0 - 31.0 PG) 30.6 MCHC (33.0 - 37.0 G/DL) 33.6 RDW (11.5 - 14.5 %) 15.9 H Plt Count (130 - 400 /CUMM) 102 L MPV (7.4 - 10.4 FL) 8.1 Gran % (42.2 - 75.2 %) 73.2 Lymphocytes % (20.5 - 51.1 %) 18.6 L Monocytes % (1.7 - 9.3 %) 7.2 Eosinophils % (0 - 5 %) 0.9 Basophils % (0.0 - 2.0 %) 0.1 Absolute Granulocytes (1.4 - 6.5 /CUMM) 6.6 H Absolute Lymphocytes (1.2 - 3.4 /CUMM) 1.7 Absolute Monocytes (0.10 - 0.60 /CUMM) 0.6 Absolute Eosinophils (0.0 - 0.7 /CUMM) 0.1 Absolute Basophils (0.0 - 0.2 /CUMM) 0 Urines Urine Color (YEL,AMB,STR) YEL Urine Clarity (CLEAR) CLEAR Urine pH (5.0 - 8.0) 6.5 Ur Specific [place] (1.001 - 1.035) 1.015 Urine Protein (NEG,<30 MG/DL) NEG Urine Ketones (NEG) NEG Urine Nitrite (NEG) NEG Urine Bilirubin (NEG) NEG Urine Urobilinogen (0.1 - 1.0 EU/dl) 2.0 H Ur Leukocyte Esterase (NEG) NEG Ur Microscopic SEDIMENT EXAMINED Urine RBC (0 - 5 /HPF) 25-50 H Urine WBC (0 - 2 /HPF) 1-3 H Ur Epithelial Cells (NONE,FEW) FEW Urine Bacteria (NEG/NONE) FEW H Urine Hemoglobin (NEG) MOD H Urine Glucose (N MG/DL) NEG Imaging Results: SERVICE DATE: 10/02/17- EXAM TYPE: CAT - CT RUNOFF ANGIOGRAM STUDY: Abdominal, pelvic, and bilateral lower extremity CT angiogram CLINICAL INDICATION: Aorto iliac compromise. Discordant lower extremity arterial Doppler. TECHNIQUE: Following the administration of a bolus infusion of 125cc of Optiray 350, images of the abdomen, pelvis and bilateral lower extremities were obtained with multidetector helical acquisition. These contrast-enhanced images were processed on an independent workstation into extensive multiplanar and 3D renditions for interpretation. Examination limited secondary to quantum model artifact from patient body habitus. COMPARISON: CT abdomen pelvis and lower extremity arterial ultrasound 10/01/2017 DLP: 1525 mGy-cm FINDINGS: VASCULATURE- Visualized portions of the distal descending thoracic aorta are normal in caliber. The abdominal aorta is normal in caliber with only minimal atherosclerotic disease. Celiac artery and superior mesenteric artery appear widely patent. Inferior mesenteric artery is patent. Single left and duplicated right renal arteries are widely patent. Left common iliac artery is widely patent and demonstrates only mild atherosclerotic disease. Left internal iliac artery is patent. Left external iliac artery is widely patent. Mild atherosclerotic disease of the left common femoral artery results in mild stenosis. Left profundus femoris artery is patent. Left superficial femoral artery is widely patent. Left popliteal artery is widely patent. The left peroneal and anterior and posterior tibial arteries are well-opacified to the level of the mid calf. All of these calf arteries are poorly opacified distal to the mid calf suggesting changes due to contrast bolus timing. A distal stenosis cannot be entirely excluded. Moderate atherosclerotic disease within the right common iliac artery results in [id number] stenosis. The right internal iliac artery is patent. Right external iliac artery is widely patent. Mild atherosclerotic disease of the right common femoral artery results in mild stenosis. Right profundus femoris artery is patent. Right superficial femoral artery is widely patent with a few areas of minimal plaque resulting in mild stenosis. The right popliteal artery is patent. There is poor opacification of the right calf arteries limiting evaluation. A stenosis/occlusion within the distal right popliteal artery cannot be entirely excluded. NON-VASCULAR- Visualized lung bases are adequately aerated. Cirrhotic appearing liver. Approximate 2 cm hypodensity within the left hepatic lobe is again poorly visualized and remains nonspecific. A gallstone is present within the gallbladder. The pancreas is mildly atrophic. Small medial splenule. Enlarged spleen. The adrenal glands are unremarkable. Symmetrically enhancing kidneys without hydronephrosis. Nonobstructing bowel gas pattern. Mild stool burden throughout the colon. The bladder is partially distended and grossly unremarkable. Penile prosthesis. Diffuse degenerative changes of the spine, hips and knees. IMPRESSION: 1. Limited examination secondary to quantum mottle artifact from patient body habitus. 2. Deep arterial system of the left lower extremity is patent with only mild atherosclerotic disease noted within the left common iliac and common femoral arteries. The left peroneal and anterior and posterior tibial arteries are well-opacified to the level of the mid calf. All of these calf arteries are poorly opacified distal to the mid calf suggesting changes due to contrast bolus timing. A distal stenosis cannot be entirely excluded. 3. Moderate atherosclerotic disease within the right common iliac artery results in [id number] stenosis. 4. There is poor opacification of the right calf arteries limiting evaluation. A stenosis/occlusion within the distal right popliteal artery cannot be entirely excluded. This may also be secondary to contrast bolus timing. 5. Cholelithiasis. 6. Cirrhotic appearing liver. Questionable 2 cm hypodensity within the left hepatic lobe. Further evaluation can be obtained with MRI imaging if clinically indicated. DICTATED BY: Guy Williamson MD DATE/TIME DICTATED:10/03/17913 CONCRETE POURING SUPERVISOR:BOBBI DATE/TIME TRANSCRIBED:10/03/17913 Assessment/Plan Assessment/Plan Mr. Thompson 67-year-old male with a history of sudden onset of back pain and left buttock pain with a subsequent finding of a CT angiogram of the pelvis and lower extremity runoff demonstrating partial occlusion. These scans were reviewed by Dr. Reyna who feels that these findings are chronic and do not contribute to his low back pain and with flow to both extremities both present under Doppler exam stating that his vascular status is also chronic not warrant taking acute action at this time. Current management should continue as currently directed and he will evaluate the patient in the morning. Consult Acknowledgment - Thank you for your consult request.
[2017-10-03] MEDS ORDERED: FLOMAX0.4 M1 PO (19:36)
[2017-10-03 22:20] VITALS: BP 100/60
[2017-10-03 22:22] VITALS: BP 118/70
[2017-10-04 05:50] VITALS: BP 100/64
--- NOTE | 2017-10-04 07:16 | PN- Housestaff ---
Isabela Cochran 10/04/17 0716: Subjective Follow-up For: Intractable back pain Hematuria Subjective: Patient was seen and examined at bedside. He continues to be in a lot of pain. His hematuria has resolved after discontinuing his Eliquis yesterday. He developed a new onset pain in his left foot yesterday. He is frustrated and annoyed that he could not make it to his appointment at [facility] today. He was surprised when we mentioned to him that his biopsy records from [facility] do not indicate that he has cancer. He denies fever, chills, nausea, vomiting, chest pain. headache, palpitations. Review of Systems Constitutional: Reports: see HPI. Objective Last 24 Hrs of Vital Signs/I&O Vital Signs Date Time Temp Pulse Resp B/P B/P Pulse O2 O2 Flow FiO2 Mean Ox Delivery Rate 10/04 1429 97.4 65 18 122/62 95 Room Air 10/04 0809 100/60 10/04 0809 100/60 10/04 0800 Room Air 10/04 0550 95.9 67 20 100/64 95 Room Air 10/04 0000 95 Room Air 10/03 2222 97.3 62 20 118/70 95 10/03 2220 98.2 90 20 100/60 92 10/03 2048 62 118/70 10/03 2046 62 118/70 10/03 1600 Room Air Intake & Output 10/04 1600 10/04 0800 10/04 0000 Intake Total 350 400 Output Total 1050 800 Balance -700 -400 Intake, IV 250 400 Intake, Oral 100 Output, Urine 1050 800 Physical Exam General Appearance: Alert, Oriented X3, Cooperative, Moderate Distress Skin Temp/Moisture Exam: Warm/Dry Neck: Supple Cardiovascular: Regular Rate, Normal S1, Normal S2 Lungs: Clear to Auscultation Abdomen: Normal Bowel Sounds, Soft, No Tenderness Extremities: BLE are cold and R>L, with chronic PVD changes including erythema and diminished pulses. Left soap tender on the lateral aspect. Sensations grossly intact BLE Vascular: Pulses Symmetrical, Diminished Assessment/Plan Assessment: 66-year-old gentleman with a past medical history significant for COPD, hypertension, diabetes, A. fib on Eliquis, psoriasis on Humira, GERD, depression /anxiety, presents with a 9 day history of back pain that has been refractory to muscle relaxant and pain medication. He reports no recent trauma. The patient was febrile when he first came in but has been afebrile since.. Duplex scan lower extremity IMPRESSION: Question discordant findings between duplex waveforms versus visual findings of peripheral arterial disease and plaque. Question some inflow disease in the left lower extremity from more proximal aortoiliac disease. CTA or MRA of the abdominal aorta and lower extremities would be of help in further evaluation. CT Abdomen IMPRESSION: - Cholelithiasis. Slight stranding surrounding the gallbladder which can be correlated for clinical signs of acute cholecystitis. - Hepatic cirrhosis. Nonspecific 2.6 cm hypodense lesion within the left lobe of the liver on image 20 of series 2 that can be correlated with any prior diagnostic liver imaging if available or a liver protocol MRI. - Splenomegaly. Abdomiinal Aorta run off IMPRESSION: 1. Limited examination secondary to quantum mottle artifact from patient body habitus. 2. Deep arterial system of the left lower extremity is patent with only mild atherosclerotic disease noted within the left common iliac and common femoral arteries. The left peroneal and anterior and posterior tibial arteries are well-opacified to the level of the mid calf. All of these calf arteries are poorly opacified distal to the mid calf suggesting changes due to contrast bolus timing. A distal stenosis cannot be entirely excluded. 3. Moderate atherosclerotic disease within the right common iliac artery results in [id number] stenosis. 4. There is poor opacification of the right calf arteries limiting evaluation. A stenosis/occlusion within the distal right popliteal artery cannot be entirely excluded. This may also be secondary to contrast bolus timing. 5. Cholelithiasis. 6. Cirrhotic appearing liver. Questionable 2 cm hypodensity within the left hepatic lobe. Further evaluation can be obtained with MRI imaging if clinically indicated. PROBLEMS 1. Intractable low back pain -8/10 severely limiting his mobility -Pain worse on movement, and would therefore make muskuloskeletal the most likely cause -Adequate pain management -Lumbar CT unremarkable -Cholecystitis on CT, USG of the abdomen acknowledged cholelithiasis , cholecystitis was not appreciated. However, we would still keep cholecystitis high on our list of diffrentials. -Will trend LFTs -Will consider surgery consult if he does not improve. -Vasular surgery input appreciated. PVD changes appear to be chronic. Will order artreial duplex for RLE. -His uric acid level was 4.8 2.?Cholecystitis -Cholecystitis on CT, not appreciated on Ultrasound. -Cholelithiasis on ultrasound without an evidence of obstruction -Would consider surgey consult if he does not improve -Blood cultures: Gram positive cocci -Total biilirubin: 1.5, with direct bilirubin: 0.5 -AST/ALT: 50/58. Alkaline phosphatase down to 80 from 141 yesterday -Trend CBC, platelet count is 91 today. 3. Hematuria -Hematuria has resolved since last night. Urine still dark in color. -Increased frequency and burning micturation also reported -UA: Few bacteria with negative leukocyte esterase and nitrite, with moderate hemoglobin - Urine culture sterile -In the view of the above findings, UTI unlikely -Hematuria could be traumatic vs malignancy vs vascular vs coagulopathy -Re-started the patient on Eliquis considering benefit vs risk ratio. 3.Mild hyponatremia - Na level of 131. Fluid restriction -Will continue to follow 4. PAD (cold lower extremities b/l with diminished pulses and slight discoloration). -CTA abdominal aorta in the AM tomorrow -Vascular surgery consulted. No urgent/emergent intervention. Ordered Arterial duplex RLE. 5.History of chronic diseases; COPD, rheumatoid arthritis, A. fib, psoriasis, GERD. Continue home meds Previous records from [facility] indicate that the patient did have an elevated ALP. He was found to have NAH on biopsy which was negative for malignancy. CODE STATUS; full DVT prophylaxis; addressed by [facility] Problem List: 1. Cholecystitis with cholelithiasis 2. Cholecystitis 3. Morbid obesity 4. Peripheral angiopathy 5. Intractable back pain 6. Diabetes 7. Hematuria Pain Ratin Pain Location: back Pain Goal: Pain 4 or less Pain Plan: pathway Tomorrow's Labs & Rationales: cbc and bep Greta Barlow 10/04/17 1020: Attending MD Review Statement Attending Statement Attending MD Statement: examined this patient, discuss w/resident/PA/SUGAR REFINERY SUPERVISOR, agreed w/resident/PA/SUGAR REFINERY SUPERVISOR, discussed with family, reviewed EMR data (avail), discussed with nursing, discussed with case mgmt, reviewed images, amended to note Attending Assessment/Plan: 66 Male with pmh of COPD, HTN, DM on metformin, afib on Eliquis, psoriasis on Humira, GERD, depression/anxiety, presented with c/c of intractable back pain for last 9-10 days which he says in the lower back on the right side. Pt underwent CT lumbar spine in the ER which did not show any spinal abscess or discitis. Patient had fever, leukocytosis on presentation. Resolving hematuria. Vitals stable. No fever in past 24-48 hrs, Blood culture positive for gram positive cocci. WBC trending down, h/H STABLE. Cr normal. Back pain intractable/?atypical presentation- Negative CT spine but suggestive of cholecystitis. C/w iv unasyn. Monitor LFTS, IVF, Diet as tolerated. Peripheral vascular disease - doppler arterial done abnormal findings. CTA Aorta run off. Vascular consulted and recommend chronic peripheral vascular disease with no emergent intervention. Cirrhosis: 2cm hypodense lesion. Biopsy results from [facility] suggestive of ALBA with no evidence of malignancy. bacteremia Gram positive cocci: Obtain TTE and repeat blood cultures follow up urology consult for hematuria resolving. Resume eliquis. monitor cbc c/w home meds. RISS and titrate insulin as needed. d/w pt the care plan .
[2017-10-04 12:28] LABS: ABSOLUTE BASOPHIL COUNT 0 /CUMM (0.0-0.2); ABSOLUTE EOSINOPHIL COUNT 0.1 /CUMM (0.0-0.7); ABSOLUTE GRANULOCYTE CT 3.9 /CUMM (1.4-6.5); ABSOLUTE LYMPH COUNT 1.1 /CUMM (1.2-3.4); ABSOLUTE MONOCYTE COUNT 0.5 /CUMM (0.10-0.60); BASOPHIL % 0.4 % (0.0-2.0); EOSINOPHIL % 1.7 % (0-5); GRANULOCYTE % 68.9 % (42.2-75.2); HEMATOCRIT 34.3 % (42-52); MEAN CORPUSCULAR HGB 30.1 PG (27.0-31.0); MEAN PLATELET VOLUME 8.1 FL (7.4-10.4); PLATELET COUNT 91 /CUMM (130-400); RED BLOOD CELL CT 3.77 /CUMM (4.70-6.10); WHITE BLOOD CELL COUNT 5.6 /CUMM (4.8-10.8)
--- NOTE | 2017-10-04 14:07 | PN- Vascular Surgery ---
Surgical Brief Attending Note Brief Attending Note: 67 y/o m w/ mmp, dm, obesity, cirrhosis, smoking who presents with lower back pain and hematuria, vascular surgery consulted for evaluation of cooler right leg. pt reports he has had multiple foot procedures for hammer toes/charcot foot. he has a thick callous on the bottom of his right foot that is painful. however denies significant numbness or pain otherwise in the foot. he is motor sensory intact. the right foot is cooler than the left but there is cap refill. Does not seem to be having any rest pain. pt is on AC for afib. NAD obese, soft,nt,nd right foot cool compared to left but there is < 2 second cap refill and he is motor sensory intact i reviewed CTA of the legs and there is poorly visualized flow below the pop on the right leg. -- i expect that there is some degree of arteiral occlusion in the right leg. this is most likely chronic in nature. pt currently has no wounds or rest pain in the right leg. no vascular explanation for his back pain hematuria --please obtain arterial duplex of the right leg.
[2017-10-04 14:29] VITALS: BP 122/62
--- NOTE | 2017-10-04 19:41 | RADIOLOGY REPORT ---
EXAMINATION: XR CHEST CLINICAL INFORMATION: Productive cough COMPARISON: 12/25/2016 TECHNIQUE: 2 views of the chest were obtained. FINDINGS: Lungs are well-expanded. No consolidation, pulmonary edema, or effusion. Pulmonary vasculature is unremarkable. Cardiac and mediastinal contours are unchanged from prior. Degenerative disc disease is present in the thoracic spine. No acute osseous findings. IMPRESSION: No acute pulmonary findings.
--- NOTE | 2017-10-04 21:08 | ULTRASOUND REPORT ---
EXAMINATION: US DUPLEX LOWER EXTREMITY ARTERY/GRAFT LIMITED, RIGHT CLINICAL INFORMATION: Right lower extremity cold and painful. Presumptive Diagnosis: Peripheral artery disease. COMPARISON: CT dated 10/02/2017. TECHNIQUE: Grayscale, color Doppler, and spectral Doppler assessment of the arteries of the right lower extremity was performed. FINDINGS: Calcific atherosclerotic plaques are evident in the right common femoral artery as well as the right popliteal artery and the runoff arteries. Common Femoral Artery: 132 cm/s peak systolic velocity with a triphasic waveform. Profunda Femoral Artery: 67 cm/s peak systolic velocity with a triphasic waveform. Superficial Femoral Artery: Peak systolic velocities between 134 and 101 cm/s with triphasic waveforms. Popliteal Artery: Peak systolic velocity 103 cm/s with a triphasic waveform. Posterior Tibial Artery: Peak systolic velocity of 84 cm/s with a biphasic waveform. Anterior Tibial Artery: Peak systolic velocity of 36 cm/s with limited systolic blood flow, no diastolic flow. Peroneal Artery: None identified, no significant blood flow. Dorsalis Pedis Artery: Biphasic waveform with peak systolic velocity of 51 cm/s. IMPRESSION: Peripheral artery disease with loss of blood flow to the peroneal artery and markedly diminished flow in the anterior tibial artery as well as mildly decreased blood flow in the posterior tibial artery. These findings suggest a flow-limiting stenosis in the distal popliteal artery corresponding to the suspected abnormality on CTA. Multiple stenoses in the proximal runoff arteries could also produce this appearance.
[2017-10-04 22:11] VITALS: BP 120/72
[2017-10-05 05:31] VITALS: BP 120/68
--- NOTE | 2017-10-05 07:24 | PN- Housestaff ---
Isabela Cochran 10/05/17 0724: Subjective Follow-up For: Intractable back pain Cough Peripheral Vascular Disease Subjective: Patient was seen and examined at bedside. He says the pain in his back is about the same but reports an improvement in the pain in his foot. He reports some cough. He did have some issues with co-pay with his insurance and was re-assured that the human services case manager would address his concerns. Review of Systems Constitutional: Reports: see HPI. Objective Last 24 Hrs of Vital Signs/I&O Vital Signs Date Time Temp Pulse Resp B/P B/P Pulse O2 O2 Flow FiO2 Mean Ox Delivery Rate 10/05 0900 98.1 66 20 120/68 10/05 0900 98.1 66 20 120/68 10/05 0531 98.1 66 20 120/68 95 Room Air 10/04 2211 97.9 70 19 120/72 96 Room Air 10/04 2026 120/70 10/04 1600 Room Air 10/04 1429 97.4 65 18 122/62 95 Room Air Intake & Output 10/05 1600 10/05 0800 10/05 0000 Intake Total 390 150 Output Total 200 1350 1290 Balance -200 -960 -1140 Intake, IV 150 Intake, Oral 240 150 Output, Urine 200 1350 1290 Physical Exam General Appearance: Alert, Oriented X3, Cooperative, Mild Distress Skin: No Rashes Neck: Supple Cardiovascular: Regular Rate, Normal S1, Normal S2, No Murmurs Lungs: Clear to Auscultation Abdomen: Normal Bowel Sounds, Soft, mild diffuse tenderness Extremities: skin dry, right limb colder than the left, pulses diminished bilaterally Assessment/Plan Assessment: 66-year-old gentleman with a past medical history significant for COPD, hypertension, diabetes, A. fib on Eliquis, psoriasis on Humira, GERD, depression /anxiety, presents with a 9 day history of back pain that has been refractory to muscle relaxant and pain medication. He reports no recent trauma. The patient was febrile when he first came in but has been afebrile since.. Duplex scan lower extremity IMPRESSION: Question discordant findings between duplex waveforms versus visual findings of peripheral arterial disease and plaque. Question some inflow disease in the left lower extremity from more proximal aortoiliac disease. CTA or MRA of the abdominal aorta and lower extremities would be of help in further evaluation. CT Abdomen IMPRESSION: - Cholelithiasis. Slight stranding surrounding the gallbladder which can be correlated for clinical signs of acute cholecystitis. - Hepatic cirrhosis. Nonspecific 2.6 cm hypodense lesion within the left lobe of the liver on image 20 of series 2 that can be correlated with any prior diagnostic liver imaging if available or a liver protocol MRI. - Splenomegaly. Abdomiinal Aorta run off IMPRESSION: 1. Limited examination secondary to quantum mottle artifact from patient body habitus. 2. Deep arterial system of the left lower extremity is patent with only mild atherosclerotic disease noted within the left common iliac and common femoral arteries. The left peroneal and anterior and posterior tibial arteries are well-opacified to the level of the mid calf. All of these calf arteries are poorly opacified distal to the mid calf suggesting changes due to contrast bolus timing. A distal stenosis cannot be entirely excluded. 3. Moderate atherosclerotic disease within the right common iliac artery results in [id number]-[id number] stenosis. 4. There is poor opacification of the right calf arteries limiting evaluation. A stenosis/occlusion within the distal right popliteal artery cannot be entirely excluded. This may also be secondary to contrast bolus timing. 5. Cholelithiasis. 6. Cirrhotic appearing liver. Questionable 2 cm hypodensity within the left hepatic lobe. Further evaluation can be obtained with MRI imaging if clinically indicated. Dupelx RLE IMPRESSION: Peripheral artery disease with loss of blood flow to the peroneal artery and markedly diminished flow in the anterior tibial artery as well as mildly decreased blood flow in the posterior tibial artery. These findings suggest a flow-limiting stenosis in the distal popliteal artery corresponding to the suspected abnormality on CTA. Multiple stenoses in the proximal runoff arteries could also produce this appearance. PROBLEMS 1. Intractable low back pain -7/10 severely limiting his mobility -Pain worse on movement, and would therefore make muskuloskeletal the most likely cause -Adequate pain management -Lumbar CT unremarkable -Cholecystitis on CT, USG of the abdomen acknowledged cholelithiasis , cholecystitis was not appreciated. However, we would still keep cholecystitis high on our list of differentials -Will trend LFTs -His uric acid level was 4.8 2.?Cholecystitis -Cholecystitis on CT, not appreciated on Ultrasound. -Cholelithiasis on ultrasound without an evidence of obstruction -Would consider surgey consult if he does not improve -Blood cultures: Gram positive cocci -Total biilirubin: 1.5, with direct bilirubin: 0.5 -AST/ALT: 50/58. Alkaline phosphatase down to 80 from 141 yesterday -Trend CBC, platelet count is 107 today. 3. Hematuria -Hematuria has resolved. -Increased frequency and burning micturation improved -UA: Few bacteria with negative leukocyte esterase and nitrite, with moderate hemoglobin - Urine culture sterile -In the view of the above findings, UTI unlikely -Hematuria could be traumatic vs malignancy vs vascular vs coagulopathy -Re-started the patient on Eliquis considering benefit vs risk ratio. 3.Mild hyponatremia - Na level of 131. Fluid restriction. Labs for BMP were not sent today -Will continue to follow 4. PAD (cold lower extremities b/l with diminished pulses and slight discoloration). -Vascular surgery consulted. Arterial duplex does endorse occlusion in the arteries in the RLE 5.History of chronic diseases; COPD, rheumatoid arthritis, A. fib, psoriasis, GERD. Continue home meds Previous records from [place] indicate that the patient did have an elevated ALP. He was found to have NAH on biopsy which was negative for malignancy. CODE STATUS; full DVT prophylaxis; addressed by Eliquis Problem List: 1. Morbid obesity 2. Cholecystitis with cholelithiasis 3. Intractable back pain 4. Diabetes 5. HTN (hypertension) Pain Ratin Pain Location: back Pain Goal: Pain 4 or less Pain Plan: pathway Tomorrow's Labs & Rationales: cbc and bep Greta Barlow 10/05/17 1043: Attending MD Review Statement Attending Statement Attending MD Statement: examined this patient, discuss w/resident/PA/FINANCIAL AGENT, agreed w/resident/PA/FINANCIAL AGENT, discussed with family, reviewed EMR data (avail), discussed with nursing, discussed with case mgmt, reviewed images, amended to note Attending Assessment/Plan: Patient seen/examined bedside. Patient denies any new complaints. He is Afebrile for past 48 hrs with repeat blood culture pending. Patient has remained on iv unasyn for possible cholecystitis and resports mild discomfort in RUQ area. His back pain is mildly improved on muscle relaxing agents. Patient hematuria resolved and tolerating his anticoagulation for afib. 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 Anticipate discharge on PO abx if he remains afebrile and blood culture are negative and referral to general surgery as outpatient for elective cholecystectomy. gi/dvt prophyalxis
[2017-10-05 10:02] LABS: ABSOLUTE BASOPHIL COUNT 0 /CUMM (0.0-0.2); ABSOLUTE EOSINOPHIL COUNT 0.1 /CUMM (0.0-0.7); ABSOLUTE GRANULOCYTE CT 4.2 /CUMM (1.4-6.5); ABSOLUTE LYMPH COUNT 1.5 /CUMM (1.2-3.4); ABSOLUTE MONOCYTE COUNT 0.5 /CUMM (0.10-0.60); BASOPHIL % 0.3 % (0.0-2.0); EOSINOPHIL % 1.8 % (0-5); GRANULOCYTE % 66.5 % (42.2-75.2); HEMATOCRIT 37.1 % (42-52); MEAN CORPUSCULAR HGB 30.1 PG (27.0-31.0); MEAN CORPUSCULAR VOLUME 91.2 FL (80.0-94.0); MEAN PLATELET VOLUME 8.6 FL (7.4-10.4); PLATELET COUNT 107 /CUMM (130-400); RBC DISTRIBUTION WIDTH 15.9 % (11.5-14.5); RED BLOOD CELL CT 4.07 /CUMM (4.70-6.10); WHITE BLOOD CELL COUNT 6.4 /CUMM (4.8-10.8)
--- NOTE | 2017-10-05 10:28 | Discharge Summary ---
Visit Information Visit Dates Admission Date: 10/02/17 Discharge Date: 10/06/17 Hospital Course Course Attending Physician: Greta Barlow MD Primary Care Physician: Isai PORRAS,[facility] Course: 66-year-old gentleman with a past medical history significant for COPD, hypertension, diabetes, A. fib on Eliquis, psoriasis on Humira, GERD, depression /anxiety, presents with a 9 day history of back pain refractory to pain medication . He reports no recent trauma. In the ED he is however found to be febrile with a temp of 102 with an increased white count at 13.7. Duplex scan lower extremity IMPRESSION: Question discordant findings between duplex waveforms versus visual findings of peripheral arterial disease and plaque. Question some inflow disease in the left lower extremity from more proximal aortoiliac disease. CTA or MRA of the abdominal aorta and lower extremities would be of help in further evaluation. CT Abdomen IMPRESSION: - Cholelithiasis. Slight stranding surrounding the gallbladder which can be correlated for clinical signs of acute cholecystitis. - Hepatic cirrhosis. Nonspecific 2.6 cm hypodense lesion within the left lobe of the liver on image 20 of series 2 that can be correlated with any prior diagnostic liver imaging if available or a liver protocol MRI. - Splenomegaly. He was admitted to the [facility] service and managed for the following problems: 1. Intractable low back pain -Pain was worse with movement. Radiology was unrevealing. -Pain was mangaged adequately with a combination of analgesics and muscle relaxants. -CT scan raised question of cholecystitis. However, ultrasound showed no evidence of cholecystitis. 2.Fevers of unknown origin with leukocytosis -The patient did have a Tmax of 102 on admission -Blood cultures of the patient revealed Gram positive cocci in pairs. -The patient was empirically started on Unasyn. -The patient was afebrile with WBC of 3.Mild hyponatremia -Fluid restriction -Will continue to follow 4. Clinical physical examination finding suggestive of PAD (cold lower extremities b/l with diminished pulses and slight discoloration). -CTA abdominal aorta in the AM tomorrow -Vascular surgery consult placed. Will follow up on recommendations. 5.History of chronic diseases; COPD, rheumatoid arthritis, A. fib, psoriasis, GERD. Continue home meds Allergies: Coded Allergies: trazodone (UNKNOWN 09/26/17) Discharge Instructions Medications at Discharge Discharge Medications: Continue taking these medications: Aspirin (Aspirin*) 81 MG TAB.CHEW 1 Tablet ORAL DAILY Comments: Last Taken: 10/06/17 Time: 11:30 AM Bupropion HCl (Forfivo XL) 450 MG TAB.ER.24H 1 Tablet ORAL DAILY Comments: Last Taken: 10/06/17 Time: 11:30 AM Adalimumab (Humira Pen) 40 MG/0.8 ML PEN.IJ.KIT 1 Syringe SC EVERY 2 WEEKS Comments: NOT GIVEN IN HOSPITAL Metoprolol Tartrate (Metoprolol Tartrate) 50 MG TABLET 1 Tablet ORAL TWICE DAILY Comments: Last Taken: 10/06/17 Time: 11:30 AM Glipizide (Glipizide) 5 MG TABLET 3 Tablet ORAL TWICE DAILY Comments: NOT GIVEN IN HOSPITAL Metformin HCl (Metformin HCl) 1,000 MG TABLET 1 Tablet ORAL TWICE DAILY Comments: NOT GIVEN IN HOSPITAL Omeprazole (Omeprazole) 20 MG TABLET.DR 1 Tablet ORAL DAILY Comments: Last Taken: 10/06/17 Time: 5:30 AM Tramadol HCl (Tramadol HCl ER) 100 MG TBMP.24HR 1 Tablet ORAL DAILY as needed for SEVERE PAIN Comments: NOT GIVEN IN HOSPITAL Clonazepam (Clonazepam) 1 MG TABLET 1 Tablet ORAL 2 x Daily as needed as needed for ANXIETY Comments: NOT GIVEN IN HOSPITAL Apixaban (Eliquis) 5 MG TABLET 1 Tablet ORAL TWICE DAILY Comments: Last Taken: 10/06/17 Time: 11:30 AM Atorvastatin Calcium (Atorvastatin Calcium) 40 MG TABLET 1 Tablet ORAL DAILY Comments: Last TakeN: 10/05/17 Time: 6:00 PM Oxycodone HCl/Acetaminophen (Percocet 5-325 MG Tablet) 5 MG-325 MG TABLET 1-2 Tablet ORAL EVERY SIX HOURS NEEDED as needed for PAIN Qty = 20 Comments: NOT GIVEN IN HOSPITAL Tamsulosin HCl (Flomax) 0.4 MG CAP.ER.24H 1 Capsule ORAL DAILY Comments: Last Taken: 10/06/17 Time: 11:30 AM Start taking the following new medications: Ibuprofen (Ibuprofen Ib) 200 MG TABLET 600 Milligram ORAL THREE TIMES DAILY Qty = 21 No Refills Oxycodone HCl/Acetaminophen (Percocet 5-325 MG Tablet) 5 MG-325 MG TABLET 1 Tablet ORAL EVERY SIX HOURS Qty = 20 No Refills
[2017-10-05 14:21] VITALS: BP 100/60
--- NOTE | 2017-10-05 18:45 | PN- Vascular Surgery ---
Surgical Brief Attending Note Brief Attending Note: pt seen and examined. arterial duplex reviewed. right foot to day is warm to the touch with good cap refill. The popliteal occlusion appears chronic in nature. no need for intervention at this time as there is no wound or rest pain. He can follow up as an outpt.
[2017-10-05 21:00] VITALS: BP 100/60
[2017-10-06 06:29] VITALS: BP 110/70
--- NOTE | 2017-10-06 07:40 | PN- Housestaff ---
Isabela Cochran 10/06/17 0740: Subjective Follow-up For: Back pain Hematuria Subjective: Patient was seen and exaimined at bedside. He reports his back pain is better today. Denies fever, chills, nausea, vomiting, blood in the urine. Review of Systems Constitutional: Reports: see HPI. Objective Last 24 Hrs of Vital Signs/I&O Vital Signs Date Time Temp Pulse Resp B/P B/P Pulse O2 O2 Flow FiO2 Mean Ox Delivery Rate 10/06 1128 64 118/76 10/06 1128 64 118/76 Physical Exam General Appearance: Alert, Oriented X3, Cooperative, No Acute Distress Neck: Supple Cardiovascular: Regular Rate, Normal S1, Normal S2, No Murmurs Lungs: Clear to Auscultation Abdomen: Normal Bowel Sounds, Soft, No Tenderness, No Hepatospenomegaly Extremities: No Edema, Normal Pulses Assessment/Plan Assessment: 66-year-old gentleman with a past medical history significant for COPD, hypertension, diabetes, A. fib on Eliquis, psoriasis on Humira, GERD, depression /anxiety, presents with a 9 day history of back pain that has been refractory to muscle relaxant and pain medication. He reports no recent trauma. The patient was febrile when he first came in but has been afebrile since.. Duplex scan lower extremity IMPRESSION: Question discordant findings between duplex waveforms versus visual findings of peripheral arterial disease and plaque. Question some inflow disease in the left lower extremity from more proximal aortoiliac disease. CTA or MRA of the abdominal aorta and lower extremities would be of help in further evaluation. CT Abdomen IMPRESSION: - Cholelithiasis. Slight stranding surrounding the gallbladder which can be correlated for clinical signs of acute cholecystitis. - Hepatic cirrhosis. Nonspecific 2.6 cm hypodense lesion within the left lobe of the liver on image 20 of series 2 that can be correlated with any prior diagnostic liver imaging if available or a liver protocol MRI. - Splenomegaly. Abdomiinal Aorta run off IMPRESSION: 1. Limited examination secondary to quantum mottle artifact from patient body habitus. 2. Deep arterial system of the left lower extremity is patent with only mild atherosclerotic disease noted within the left common iliac and common femoral arteries. The left peroneal and anterior and posterior tibial arteries are well-opacified to the level of the mid calf. All of these calf arteries are poorly opacified distal to the mid calf suggesting changes due to contrast bolus timing. A distal stenosis cannot be entirely excluded. 3. Moderate atherosclerotic disease within the right common iliac artery results in dadh-mp-sydjozar stenosis. 4. There is poor opacification of the right calf arteries limiting evaluation. A stenosis/occlusion within the distal right popliteal artery cannot be entirely excluded. This may also be secondary to contrast bolus timing. 5. Cholelithiasis. 6. Cirrhotic appearing liver. Questionable 2 cm hypodensity within the left hepatic lobe. Further evaluation can be obtained with MRI imaging if clinically indicated. Dupelx RLE IMPRESSION: Peripheral artery disease with loss of blood flow to the peroneal artery and markedly diminished flow in the anterior tibial artery as well as mildly decreased blood flow in the posterior tibial artery. These findings suggest a flow-limiting stenosis in the distal popliteal artery corresponding to the suspected abnormality on CTA. Multiple stenoses in the proximal runoff arteries could also produce this appearance. PROBLEMS 1. Intractable low back pain -08/22 severely limiting his mobility -Pain worse on movement, and would therefore make muskuloskeletal the most likely cause -Adequate pain management -Lumbar CT unremarkable -Cholecystitis on CT, USG of the abdomen acknowledged cholelithiasis , cholecystitis was not appreciated. However, we would still keep cholecystitis high on our list of differentials -Will trend LFTs -His uric acid level was 4.8 2.?Cholecystitis -Cholecystitis on CT, not appreciated on Ultrasound. -Cholelithiasis on ultrasound without an evidence of obstruction -Would consider surgey consult if he does not improve -Blood cultures: Gram positive cocci -Total biilirubin: 1.5, with direct bilirubin: 0.5 -AST/ALT: 50/58. Alkaline phosphatase down to 80 from 141 yesterday -Trend CBC, platelet count is 107 today. 3. Hematuria -Hematuria has resolved. -Increased frequency and burning micturation improved -UA: Few bacteria with negative leukocyte esterase and nitrite, with moderate hemoglobin - Urine culture sterile -In the view of the above findings, UTI unlikely -Hematuria could be traumatic vs malignancy vs vascular vs coagulopathy -Re-started the patient on Eliquis considering benefit vs risk ratio. 3.Mild hyponatremia - Na level of 131. Fluid restriction. Labs for BMP were not sent today -Will continue to follow 4. PAD (cold lower extremities b/l with diminished pulses and slight discoloration). -Vascular surgery consulted. Arterial duplex does endorse occlusion in the arteries in the RLE 5.History of chronic diseases; COPD, rheumatoid arthritis, A. fib, psoriasis, GERD. Continue home meds Previous records from [place] indicate that the patient did have an elevated ALP. He was found to have NAH on biopsy which was negative for malignancy. CODE STATUS; full DVT prophylaxis; addressed by [place] Problem List: 1. Morbid obesity 2. Peripheral angiopathy 3. Fever 4. Intractable back pain Pain Ratin Pain Location: back Pain Goal: Pain 4 or less Pain Plan: pathway Tomorrow's Labs & Rationales: vikram BarlowGreta 10/06/17 1045: Attending MD Review Statement Attending Statement Attending MD Statement: examined this patient, discuss w/resident/PA/MEDICAL SPECIALIST, agreed w/resident/PA/MEDICAL SPECIALIST, discussed with family, reviewed EMR data (avail), discussed with nursing, discussed with case mgmt, reviewed images, amended to note Attending Assessment/Plan: Patient seen/examined bedside. Patient denies any new complaints. He is Afebrile for past 48-72 hrs with initial blood culture suggestive of contaminant. Patient has completed abx for possible cholecystitis. His back pain is improved on muscle relaxing agents. Patient hematuria resolved and tolerating his anticoagulation for afib. 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 Anticipate discharge today as he remained afebrile and blood culture are negative and provide referral to general surgery as outpatient for elective cholecystectomy. FOLLOW UP PCP in 5-7 days of discharge.
--- NOTE | 2017-10-06 07:54 | Patient Discharge Instructions ---
Discharge Instructions General Discharge Information You were seen/treated for: Back pain Blood in the urine Special Instructions: 1. Please schedule an appointment with your PCP within a week of your discharge. 2. Please schedule an appointment with a vascular surgeon for further evaluation and management of your peripheral vascular disease. 3. Please schedule an appointment with a urologist if you again notice blood in your urine Acute Coronary Syndrome Inclusion Criteria At DC or during hospital stay patient has or had the following: ACS DIAGNOSIS No Discharge Core Measures Meds if any: Prescribed or Continued at Discharge Meds if any: NOT Prescribed or Continued at Discharge Congestive Heart Failure Inclusion Criteria At DC or during hospital stay patient has or had the following: CHF DIAGNOSIS No Discharge Core Measures Meds if any: Prescribed or Continued at Discharge Meds if any: NOT Prescribed or Continued at Discharge Cerebrovascular accident Inclusion Criteria At DC or during hospital stay patient has or had the following: CVA/TIA Diagnosis No Discharge Core Measures Meds if any: Prescribed or Continued at Discharge Meds if any: NOT Prescribed or Continued at Discharge Venous thromboembolism Inclusion Criteria VTE Diagnosis No VTE Type NONE VTE Confirmed by (Test) NONE Discharge Core Measures - Per Current guidelines, there needs to be overlap - treatment for the first 5 days of Warfarin therapy. - If discharged on Warfarin prior to 5 days of - overlap therapy, the patient will need to be - assessed for post discharge needs including - *Post discharge parental anticoagulation - *Warfarin and/or parental anticoagulation education - *Follow up date to check INR post discharge At least 5 days overlap therapy as Inpatient No Meds if any: Prescribed or Continued at Discharge Note: Overlap Therapy is Warfarin and Anticoagulant Meds if any: NOT Prescribed or Continued at Discharge
[2017-10-06 09:00] LABS: ABSOLUTE BASOPHIL COUNT 0 /CUMM (0.0-0.2); ABSOLUTE EOSINOPHIL COUNT 0.1 /CUMM (0.0-0.7); ABSOLUTE GRANULOCYTE CT 3.8 /CUMM (1.4-6.5); ABSOLUTE LYMPH COUNT 1.9 /CUMM (1.2-3.4); ABSOLUTE MONOCYTE COUNT 0.5 /CUMM (0.10-0.60); BASOPHIL % 0.4 % (0.0-2.0); EOSINOPHIL % 1.8 % (0-5); HEMATOCRIT 39.5 % (42-52); MEAN CORPUSCULAR HGB 30.4 PG (27.0-31.0); MEAN CORPUSCULAR HGB CONC 33.3 G/DL (33.0-37.0); MEAN CORPUSCULAR VOLUME 91.3 FL (80.0-94.0); MEAN PLATELET VOLUME 9.2 FL (7.4-10.4); PLATELET COUNT 113 /CUMM (130-400); RBC DISTRIBUTION WIDTH 15.5 % (11.5-14.5); RED BLOOD CELL CT 4.32 /CUMM (4.70-6.10); WHITE BLOOD CELL COUNT 6.4 /CUMM (4.8-10.8)
[2017-10-06] MEDS ORDERED: IBUPROFEN IB200 M1 PO ×2 (11:01→11:13)
[2017-10-06 11:28] VITALS: BP 118/76
[2017-10-06] MEDS ORDERED: PERCOCET 5-3251 EACH PO ×2 (13:44→13:53)
--- NOTE | 2017-10-06 14:32 | ECHOCARDIOGRAM REPORT ---
SAHRA LUX Age: 67 : 1950 Gender: M Exam Date: 10/06/2017 11:49 Exam Location: [place] Ht (in): 72 Wt (lb): 329 BSA: 2.82 BP: 100 / 60 Ordering Physician: Isabela Cochran MD Referring Physician: Isabela Cochran MD Technologist: Claudy Frye [facility] Room Number: [id number] Indications: Infective Endocarditis Rhythm: Technical Quality: Technically difficult study FINDINGS Left Ventricle Left ventricular cavity size normal. Left ventricular wall thickness mildly increased. No obvious regional wall motion abnormalities. Left ventricular ejection fraction is estimated at > 55 %. Right Ventricle Normal right ventricular size and function. Right Atrium Normal right atrial size. Left Atrium Mild left atrial dilatation. Mitral Valve Moderate mitral annular calcification. Mild mitral regurgitation. Aortic Valve Diffuse thickening of the aortic valve cusps with reduced excursion. Moderate aortic stenosis (mean gradient 29 mmHg). Tricuspid Valve Tricuspid valve not well visualized, grossly normal. Mild tricuspid regurgitation. Unable to estimate the right ventricular systolic pressure. Pulmonic Valve Pulmonic valve not well visualized, grossly normal. Pericardium No pericardial effusion. Great Vessels Normal size aortic root. CONCLUSIONS Technically difficult study. Left ventricular cavity size normal. Left ventricular wall thickness mildly increased. No obvious regional wall motion abnormalities. Left ventricular ejection fraction is estimated at > 55 %. Normal right ventricular size and function. Mild left atrial dilatation. Moderate aortic stenosis (mean gradient 29 mmHg). No pericardial effusion. Elbert Norris M.D. (Electronically Signed) Final Date: 06 October 2017 14:26 MEASUREMENTS (Male / Female) Normal Values 2D ECHO LV Diastolic Diameter PLAX 5.4 cm 4.2 - 5.9 / 3.9 - 5.3 cm LV Systolic Diameter PLAX 3.1 cm 2.1 - 4.0 cm LV Fractional Shortening PLAX 42.4 % 25 - 46 % LV Ejection Fraction 2D Teich 73.0 % IVS Diastolic Thickness 1.4 cm LVPW Diastolic Thickness 1.3 cm LV Relative Wall Thickness 0.5 RV Internal Dim ED PLAX 3.7 cm 1.9 - 3.8 cm LVOT Diameter 2.4 cm Aortic Root Diameter 3.4 cm LA Systolic Diameter LX 5.0 cm 3.0 - 4.0 / 2.7 - 3.8 cm Ascending Aorta Diameter 3.3 cm DOPPLER AV Peak Velocity 339.0 cm/s AV Peak Gradient 46.0 mmHg AV Mean Velocity 252.3 cm/s AV Mean Gradient 29.0 mmHg AV Velocity Time Integral 81.4 cm LVOT Peak Velocity 58.7 cm/s LVOT Peak Gradient 1.4 mmHg LVOT Mean Velocity 37.4 cm/s LVOT Mean Gradient 1.0 mmHg LVOT Velocity Time Integral 14.9 cm LVOT Stroke Volume 67.4 cm AV Area Cont Eq vti 0.8 cm AV Area Cont Eq pk 0.8 cm MV Peak Velocity 127.0 cm/s MV Peak Gradient 6.5 mmHg MV Mean Velocity 72.5 cm/s MV Mean Gradient 3.0 mmHg Mitral E Point Velocity 110.0 cm/s Mitral A Point Velocity 62.2 cm/s Mitral E to A Ratio 1.8 MV PHT Velocity 130.0 cm/s MV Deceleration Union 335.0 cm/s MV Pressure Half Time 116.4 ms MV Area PHT 1.9 cm MV Deceleration Time 275.0 ms PV Peak Velocity 144.0 cm/s PV Peak Gradient 8.3 mmHg LV E' Lateral Velocity 7.2 cm/s Mitral E to LV E' Lateral Ratio 15.3 LV E' Septal Velocity 4.9 cm/s Mitral E to LV E' Septal Ratio 22.6
== END 2017-10-06 16:20 | DRG 445 ==
LOC: ERH 23:54 → 2NA 10-01 06:47 → ERHI 10-01 06:47 → EDBEDREQ 10-01 07:13 → ENRESERV 10-01 07:54 → ENTRNSPT 10-01 08:20 → EDTRNSPTSTS 10-01 08:29 → 2NA 10-01 08:35 → CMPTRNSPT 10-01 09:01 → 2NA 10-02 08:04 → ENPENDDIS 10-06 14:31 → ENTRNSPT 10-06 16:10 → EDTRNSPTSTS 10-06 16:13 → 2NA 10-06 16:20 → CMPTRNSPT 10-06 16:27
PROVIDERS: Emergency Medicine; Hospitalist
DX: K80.10 Calculus of gallbladder with chronic cholecystitis without obstruction (principal); R78.81 Bacteremia; E87.1 Hypo-osmolality and hyponatremia; Z68.41 Body mass index [BMI] 40.0-44.9, adult; D68.32 Hemorrhagic disorder due to extrinsic circulating anticoagulants; I73.9 Peripheral vascular disease, unspecified; M54.5 Low back pain; J44.9 Chronic obstructive pulmonary disease, unspecified; L40.9 Psoriasis, unspecified; I48.91 Unspecified atrial fibrillation; Z79.01 Long term (current) use of anticoagulants; K21.9 Gastro-esophageal reflux disease without esophagitis; F41.9 Anxiety disorder, unspecified; F32.9 Major depressive disorder, single episode, unspecified; I10 Essential (primary) hypertension; E78.5 Hyperlipidemia, unspecified; M06.9 Rheumatoid arthritis, unspecified; Z79.84 Long term (current) use of oral hypoglycemic drugs; E66.01 Morbid (severe) obesity due to excess calories; R31.9 Hematuria, unspecified; T45.525A Adverse effect of antithrombotic drugs, initial encounter; K75.81 Nonalcoholic steatohepatitis (NASH); B95.5 Unspecified streptococcus as the cause of diseases classified elsewhere; E11.9 Type 2 diabetes mellitus without complications; Z79.899 Other long term (current) drug therapy; Z88.5 Allergy status to narcotic agent; Z85.05 Personal history of malignant neoplasm of liver; Z96.89 Presence of other specified functional implants
CPT/HCPCS: 2NAP; 36415; 36592; 71045; 71046; 74176; 81001; 82436; 87040; 87086; 87147; 93306; 93925; 96374; 96375; 97161-GP; 97530-GO; J0131; J1885; J3490